=== PATIENT | female | born 1960 | race Caucasian/White ===

== ENCOUNTER → 2016-07-10 | Outpatient (CLI) | payer OTHER ==
--- NOTE | 2016-07-11 10:09 | MM ---
Reason for exam: screening (asymptomatic). Last mammogram was performed 1 year ago. History: Patient is postmenopausal. Physical Findings: A clinical breast exam by your physician is recommended on an annual basis and results should be correlated with mammographic findings. MG Screening Mammo w CAD Bilateral CC and MLO view(s) were taken. Prior study comparison: July 12, 2015, bilateral MG screening mammo w CAD. November 12, 2011, left diagnostic mammogram w/CAD. There are scattered fibroglandular densities. There is no discrete abnormality. ASSESSMENT: Negative, BI-RAD 1 RECOMMENDATION: Routine screening mammogram of both breasts in 1 year.
== END | disposition home or self-care (01) ==
LOC: RADMAMWWP 09:36
PROVIDERS: ATTEND Family Medicine
DX: Z12.31 Encounter for screening mammogram for malignant neoplasm of breast (principal)

== ENCOUNTER → 2016-07-10 | Outpatient (CLI) | payer OTHER ==
--- NOTE | 2016-07-10 14:16 | PN ---
A 56-year-old lady who has been [facility] for [facility] of obstructive sleep apnea-hypopnea syndrome. I discussed results of diagnostic sleep study and CPAP titration with patient and family in details. Patient recently had been started on treatment with CPAP at the pressure 16 cm of water. I checked CPAP unit. Usage is 25/30 nights for more than 4 hours, a leak from the mask up to 40 L/min which is borderline. Apnea-hypopnea index reading from the machine is only 0.9, which is perfect. Sometimes patient has difficulties related to the pressure, presently machine on the CPAP at 16 cm of water. During the first visit [place] Sleepiness Scale was 22. 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 She goes to bed from 8 to 11 p.m. Subsequently, if she goes to bed only at 11, it is only about 4-1/2 hours of sleep. MEDICATIONS: Aspirin, atorvastatin, vitamin D supplement, metoprolol, clopidogrel, lisinopril. PHYSICAL EXAMINATION: During physical exam, patient in no distress. BP 146/73, HR 88, RR 16, weight 261, temp 97.4. Oxygen saturation at room air 95%. Low position of soft palate. ABDOMEN: Obese. EXTREMITIES: 1+ edema. NECK: Supple. No JVD. Thyroid is not palpable. LUNGS: Clear to percussion and to auscultation. Good air exchange. No wheezing or rhonchi. HEART: S1, S2 regular. No murmurs, gallops or rubs. OIL WELL PUMPER: Awake, alert, and oriented x3. Cranial nerves 2 to 7 intact. There is no fasciculation or atrophy noted. No focal deficits observed. IMPRESSION: 1. Obstructive sleep apnea-hypopnea syndrome. Apnea-hypopnea index 14.8 with oxygen desaturation to 73.9%. Patient benefiting from treatment, demonstrated good compliance with treatment. 2. Obesity. 3. Hypertension. 4. Swelling of the legs. 5. Status post cholecystectomy. 6. Status post tonsillectomy. 7. Status post cyst removed from right ovary. PLAN: 1. I adjusted CPAP unit down to the pressure of 14 cm of water. 2. I change ramp from automatic regimen to regular regimen for 30 minutes started from the pressure of 6 cm of water. 3. Increase time in bed to at least 7-1/2 hours, patient should go to bed at 8 p.m. 4. We discussed that she needs increased time in bed because getting normal amount of sleep may help her to lose weight. 5. No driving if feeling any sleepiness. Thank you very much for allowing me to participate in the management of your patient. Sincerely, Ori Landeros MD, PhD, FAASM. Diplomat of [place] [employer], Sleep Medicine Board by [place] [employer] [place] [employer] [facility] [place]
== END | disposition home or self-care (01) ==
LOC: SLEEP 11:16
PROVIDERS: ATTEND Internal Medicine
DX: G47.33 Obstructive sleep apnea (adult) (pediatric) (principal); E66.9 Obesity, unspecified; I10 Essential (primary) hypertension; M79.89 Other specified soft tissue disorders; Z98.890 Other specified postprocedural states; Z79.899 Other long term (current) drug therapy

== ENCOUNTER → 2016-10-01 | Outpatient (CLI) | payer OTHER ==
--- NOTE | 2016-10-01 15:50 | US ---
EXAMINATION TYPE: US kidneys/renal and bladder DATE OF EXAM: 10/01/2016 3:34 PM COMPARISON: CT 2016 CLINICAL HISTORY: R10.84 Abdominal pain.R10.9 Right Flank pain. symptoms intermittent x 2 months EXAM MEASUREMENTS: Right Kidney: 10.1 x 6.4 x 5.3 cm Left Kidney: 11.0 x 6.0 x 5.2 cm Post Void Residual Volume: 2.1 mL Right Kidney: No hydronephrosis or masses seen Left Kidney: No hydronephrosis or masses seen Bladder: wnl, but not fully distended Bilateral Jets seen: Yes Normal Post Void Residual: Yes IMPRESSION: No hydronephrosis or nephrolithiasis.
== END | disposition home or self-care (01) ==
LOC: RADUSWWP 14:59
PROVIDERS: ATTEND Family Medicine
DX: R10.84 Generalized abdominal pain (principal); Z88.1 Allergy status to other antibiotic agents; Z88.7 Allergy status to serum and vaccine
CPT/HCPCS: 76770

== ENCOUNTER → 2016-10-15 | Outpatient (CLI) | payer OTHER ==
--- NOTE | 2016-10-15 08:01 | CT ---
EXAMINATION TYPE: CT abdomen w con DATE OF EXAM: 10/15/2016 7:51 AM REFERENCE: Previous study dated 08/22/2015 HISTORY: R10.11 RUQ abdominal pain HISTORY: RUQ abdominal pain and Right flank pain REFERENCE: NONE CT DLP: 1693.10 mGy Automated exposure control for dose reduction was used. TECHNIQUE: Helical acquisition through the abdomen and pelvis was obtained following the oral ingesti on of with Oral Contrast and following intravenous administration of 100 ml mL of Omnipaque 300. The data was reformatted in axial, coronal and sagittal projections. FINDINGS: Visualized portions of the lungs are clear. There is no pleural or pericardial fluid. The heart is mildly enlarged. Within the abdomen, the liver is prominent measuring 20 cm. This is largely due to a prominent Kraig 's lobe. The gallbladder has been removed. The spleen is unremarkable. There are stable partially calcified lesions in the left upper quadrant, unchanged from previous. The se may represent calcified lymph nodes. The pancreas is unremarkable. Both kidneys demonstrate function and appear morphologically normal. There is no evidence of nephroli thiasis or hydronephrosis. There is moderate atheromatous calcification of the aorta and iliac vessels. There is no significant retroperitoneal or proximal iliac adenopathy. There is uncomplicated diverticular change involving the left side of the colon. There is mucosal thi ckening involving the transverse colon. The appendix is normal. Small bowel loops are normal. No free fluid and no free air is seen. 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 No bony destructive lesion is seen. IMPRESSION: 1. MILD CARDIOMEGALY. 2. MILD PROMINENCE OF THE LIVER. 3. STABLE, PARTIALLY CALCIFIED LEFT UPPER QUADRANT LESIONS OF QUESTIONABLE ETIOLOGY AND SIGNIFICANCE. 4. UNCOMPLICATED DIVERTICULOSIS OF THE LEFT SIDE OF THE COLON. 5. MUCOSAL THICKENING INVOLVING THE TRANSVERSE COLON. PLEASE CORRELATE CLINICALLY FOR COLITIS. 6. FORESTIER'S DISEASE.
== END | disposition home or self-care (01) ==
LOC: RADCTMAIN 07:18
PROVIDERS: ATTEND Family Medicine
DX: K57.30 Diverticulosis of large intestine without perforation or abscess without bleeding (principal); M35.3 Polymyalgia rheumatica; K63.89 Other specified diseases of intestine; R19.8 Other specified symptoms and signs involving the digestive system and abdomen
CPT/HCPCS: 74160; Q9967

== ENCOUNTER → 2017-10-13 | Outpatient (CLI) | payer OTHER ==
[2017-10-13 15:32] LABS: HCT 40.9 % (34.0-46.0); HGB 13.6 gm/dL (11.4-16.0); MCH 29.9 pg (25.0-35.0); MCHC 33.3 g/dL (31.0-37.0); MCV 89.7 fL (80.0-100.0); Mean Platelet Volume 8.3; Platelet Count 147 k/uL (150-450); RBC 4.56 m/uL (3.80-5.40); RDW 14.3 % (11.5-15.5); WBC 7.7 k/uL (3.8-10.6)
[2017-10-13 15:50] LABS: Anion Gap 13 mmol/L; Blood Urea Nitrogen 10 mg/dL (7-17); Carbon Dioxide 28 mmol/L (22-30); Chloride 105 mmol/L (98-107); Sodium 146 mmol/L (137-145)
== END | disposition home or self-care (01) ==
LOC: LABPAT 15:13
PROVIDERS: ATTEND Internal Medicine Cardiovascular Disease
DX: Z01.812 Encounter for preprocedural laboratory examination (principal); I25.5 Ischemic cardiomyopathy
CPT/HCPCS: 36415; 80051; 82565; 84520; 85027

== ENCOUNTER 2017-11-05 06:00 | Day surgery (SDC) | payer OTHER ==
[2017-10-29 11:26] VITALS: BMI 46.8
[2017-11-05] MEDS ORDERED: CLINDAMYCIN 900 MG in DEXTROSE 5% IN WATER 50 ML IVPB ONE ×2 (06:08)
[2017-11-05] MEDS ORDERED: CLINDAMYCIN 600 MG in SODIUM CHLORIDE 0.9% IRRIGATIO 250 ML IRRIGATION ONE (06:08)
[2017-11-05 06:39] LABS: Basophils # (A) 0.1 k/uL (0-0.2); Basophils % (A) 1 %; Eosinophils # (A) 0.2 k/uL (0-0.7); Eosinophils % (A) 2 %; HCT 42.6 % (34.0-46.0); HGB 14.1 gm/dL (11.4-16.0); Lymphocytes # (A) 1.8 k/uL (1.0-4.8); Lymphocytes % (A) 22 %; MCH 29.4 pg (25.0-35.0); MCV 88.9 fL (80.0-100.0); Mean Platelet Volume 8.7; Monocytes # (A) 0.4 k/uL (0-1.0); Monocytes % (A) 5 %; Neutrophils # (A) 5.5 k/uL (1.3-7.7); Neutrophils % (A) 69 %; Platelet Count 142 k/uL (150-450); RBC 4.79 m/uL (3.80-5.40); RDW 14.2 % (11.5-15.5)
[2017-11-05] MEDS ORDERED: KETAMINE 10 MG/ML 20 ML VIAL ONE (07:35)
[2017-11-05] MEDS ORDERED: IV FLUID CONTINUATION 900 ML IV ONE (07:35)
[2017-11-05] MEDS ORDERED: MIDAZOLAM 2 MG/2 ML VIAL ONE (07:35)
[2017-11-05] MEDS ORDERED: fentaNYL (PF) 50 MCG/ML 2 ML AMP ONE (07:35)
[2017-11-05] MEDS ORDERED: PROPOFOL 10 MG/ML 20 ML VIAL IV ONE (07:35)
[2017-11-05] MEDS ORDERED: IOPAMIDOL-250 50ML BTL IV ONE (07:47)
[2017-11-05 07:52] LABS: Anion Gap 9 mmol/L; Blood Urea Nitrogen 11 mg/dL (7-17); Carbon Dioxide 25 mmol/L (22-30); Chloride 107 mmol/L (98-107); Glucose 116 mg/dL (74-99); Potassium 4.1 mmol/L (3.5-5.1); Sodium 141 mmol/L (137-145)
[2017-11-05] MEDS ORDERED: LIDOCAINE 1% INJ 10MG/ML (20 ML MDV) ONE ×3 (08:01→08:06)
[2017-11-05] MEDS ORDERED: LIDOCAINE 1% INJ 10MG/ML (20 ML MDV) SQ ONE ×2 (08:20→08:31)
[2017-11-05] MEDS ORDERED: ACETAMINOPHEN TAB 325 MG TAB PO PRN (09:25)
--- NOTE | 2017-11-05 09:38 | P.PCN ---
Date of Procedure: 11/05/17 Preoperative Diagnosis: Ischemic cardiomyopathy and CHF Postoperative Diagnosis: Ischemic cardiac myopathy and CHF Procedure(s) Performed: AICD implantation, single-chamber single coil. Axillary venography Description of Procedure: HISTORY: This is a 57-year-old female with history of extensive previous myocardial infarctions, ischemic cardiomyopathy and class II congestive heart failure and ejection fraction of 30%. Dr. Esquivel recommended that patient have AICD implantation. CONSENT:I have discussed the risks, benefits and alternative therapies for the above-mentioned procedure and for both sedation/analgesia as well as necessary blood product administration, if indicated, as they pertain to this patient. The patient has indicated understanding and acceptance of the risks and procedures discussed. PROCEDURE: Patient was brought to the lab in a fasting state. Patient was prepped and draped in the usual fashion. Department of anesthesia provided IV sedation. The skin below the left clavicle was infiltrated with lidocaine. An incision was made parallel to deltopectoral groove was deepened until the pectoral fascia was exposed. A pocket was created by blunt dissection and cautery. Axillary venography was performed to delineate the course of the axillary vein. A single stick was performed into extrathoracic portion of the axillary vein and a single sheath was advanced over the guidewires and left in subclavian vein. Conscious Sedation: As per anesthesia Fentanyl Duration LEADS: VENTRICULAR: This is manufactured by [employer]. The model number is [id number] and the serial number [id number]. The ventricular lead is maneuvered l with help of a straight and curved stylets into the left ventricle apical region. Satisfactory position was obtained and threshold measurements were made and thresholds were obtained. THRESHOLDS: VENTRICLE: The minimum patient threshold was 0.8 at pulse width of 0.5 and impedance of 6 and 46 ohms R-wave: 27.9 The leads and pulse generator remained in the pocket after it was washed with antibiotics. Pocket was closed in the usual fashion. The fascia was closed with 2-0 Prolene ,the subcutaneous tissue was closed with 3-0 Prolene and the skin was closed with 4-0 Prolene. PROGRAMMING: MICK PROGRAMMING: MODE : VVI RATE: 40 OUTPUT: Ventricle: 3.5 V Tachycardia Programming: VF zone: programmed to a rate of 188 bpm. The therapies are programmed to 25 J followed by 355. The last 2 shocks with reversed polarity. VT zone: Programmed to a rate of 167. The therapies are programmed to burst pacing followed by ramp pacing followed by cardioversion with 25 J followed by 353. Monitor zone is programmed to an interval of 450 ms. FINAL IMPRESSION: #1. Axillary venography #2. Insertion of single-chamber AICD , single coil #3. DFT testing COMPLICATIONS: None PLAN: Patient will monitored on the telemetry unit. Prophylactic antibacterial be continued. Chest x-ray in the morning. If the patient is stable, she'll be discharged home tomorrow.
[2017-11-05] MEDS ORDERED: NITROGLYCERIN SL TABS 0.4 MG TAB SUBLINGUAL PRN (11:47)
[2017-11-05] MEDS ORDERED: SYMBICORT 160-4.5 MCG INHALER INHALATION PRN (11:47)
[2017-11-05] MEDS: SODIUM CHLORIDE 0.9% 1,000 ML IV SCH ×2 (11:52→11:53)
[2017-11-05] MEDS: CLINDAMYCIN 900 MG in DEXTROSE 5% IN WATER 50 ML IVPB SCH ×4 (14:47→22:16)
[2017-11-05] MEDS: HYDROcodone/APAP 5-325MG 1 EACH TAB PO PRN ×2 (16:38→22:18)
[2017-11-05] MEDS ORDERED: ATORVASTATIN 40 MG TAB PO SCH (21:00)
[2017-11-06] MEDS: CLINDAMYCIN 900 MG in DEXTROSE 5% IN WATER 50 ML IVPB SCH ×4 (03:00→08:12)
[2017-11-06] MEDS: SODIUM CHLORIDE 0.9% 1,000 ML IV SCH ×2 (05:33)
[2017-11-06 07:36] VITALS: BP 153/102; PULSE 98; RESP 16; TEMP 98.6
[2017-11-06] MEDS ORDERED: LISINOPRIL 20 MG TAB PO SCH (09:00)
[2017-11-06] MEDS ORDERED: METOPROLOL TARTRATE 50 MG TAB PO SCH (09:00)
--- NOTE | 2017-11-06 09:12 | P.DS ---
Providers Date of admission: 12/05/2017 Attending physician: Adair Donaldson Primary care physician: Fredi Dejesus - Discharge Diagnosis(es) (1) Ischemic cardiomyopathy Current Visit: Yes Status: Acute (2) Chronic systolic (congestive) heart failure Current Visit: Yes Status: Acute (3) Cardiac defibrillator in place Current Visit: Yes Status: Acute Hospital Course: This 57-year-old female with history of previous myocardial infarctions and ischemic cardiac myopathy was recently evaluated by Dr. Esquivel and was found to have an ejection fraction of 30%, which has been persistent. She also has symptoms of class II CHF. Patient is advised to have prophylactic AICD implantation. She was brought in yesterday and the procedure was done with help of some anesthesia by the department of anesthesia. Patient tolerated the procedure well. Patient has remained stable overnight. Complaints of mild soreness in the area. Patient also has chronic COPD and mild shortness of breath and mild wheezing. Otherwise patient is feeling good. No arrhythmias are detected. Chest x-ray showed proper lead position. The device is interrogated which showed stable findings. Patient is being discharged home with the usual instructions. Patient is advised to keep the dressing dry until seen in the office in one week. She is advised to report if she develops any undue swelling, pain, fever, chills. She is advised not to do any heavy lifting , pushing, pulling or driving using left arm. She is advised not to lift the arm above the shoulder level. Follow-up in the office in one week Dr. Esquivel and also in the device clinic Plan - Discharge Summary Discharge Rx Participant: Yes New Discharge Prescriptions: New Clindamycin [Cleocin] 450 mg PO Q6H #10 capsule No Action Aspirin EC [Ecotrin] 325 mg PO DAILY Nitroglycerin Sl Tabs [Nitrostat] 0.4 mg SUBLINGUAL Q5M PRN #30 tab PRN Reason: Chest Pain Clopidogrel [Plavix] 75 mg PO DAILY #30 tab Lisinopril [Prinivil] 20 mg PO DAILY #30 tablet Atorvastatin Calcium [Lipitor] 40 mg PO HS #30 tab Budesonide-Formot 160-4.5 Mcg [Symbicort 160-4.5 Mcg Inhaler] 1 puff PO BID PRN PRN Reason: Shortness Of Breath Or Wheezing Metoprolol Tartrate [Lopressor] 50 mg PO DAILY Ibuprofen [Motrin] 800 mg PO Q6H PRN PRN Reason: Pain Discharge Medication List Aspirin EC [Ecotrin] 325 mg PO DAILY 04/26/14 [History] Atorvastatin Calcium [Lipitor] 40 mg PO HS #30 tab 03/29/15 [Rx] Clopidogrel [Plavix] 75 mg PO DAILY #30 tab 03/29/15 [Rx] Lisinopril [Prinivil] 20 mg PO DAILY #30 tablet 03/29/15 [Rx] Nitroglycerin Sl Tabs [Nitrostat] 0.4 mg SUBLINGUAL Q5M PRN #30 tab 03/29/15 [Rx ] Budesonide-Formot 160-4.5 Mcg [Symbicort 160-4.5 Mcg Inhaler] 1 puff PO BID PRN 04/08/16 [History] Ibuprofen [Motrin] 800 mg PO Q6H PRN 10/14/17 [History] Metoprolol Tartrate [Lopressor] 50 mg PO DAILY 10/14/17 [History] Clindamycin [Cleocin] 450 mg PO Q6H #10 capsule 11/06/17 [Rx] Follow up Appointment(s)/Referral(s): Adair Donaldson MD [STAFF PHYSICIAN] - 1 Week Tramaine Esquivel MD [STAFF PHYSICIAN] - 1 Week Discharge Disposition: HOME SELF-CARE
--- NOTE | 2017-11-06 09:47 | XR ---
EXAMINATION TYPE: XR chest 2V DATE OF EXAM: 11/06/2017 COMPARISON: Prior chest x-ray 04/08/2016 HISTORY: Lead placement check TECHNIQUE: Frontal and lateral views of the chest are obtained. FINDINGS: There is been interval placement of a defibrillator with the generator in the left pectora l region, lead is in the right ventricle. Patient is post median sternotomy. There is no evident pneu mothorax or pleural effusion. Heart size is stable. There are overlying cardiac leads. IMPRESSION: No evident complication status post defibrillator placement
--- NOTE | 2017-11-06 13:46 | PN ---
PROGRESS NOTE CHIEF COMPLAINT: Ischemic cardiomyopathy. HISTORY OF PRESENT ILLNESS: This lady is doing well. The AICD was placed yesterday and she is not having a great deal of difficulty or pain. She will go home today. PHYSICAL EXAM: Cardiac exam is normal. Chest is clear. Vital signs are normal. IMPRESSION: Status post implantation of AICD. PLAN: Probably home today. MMODL / IJN: [id number] /
--- NOTE | 2017-11-06 13:52 | CONS ---
CONSULTATION CHIEF COMPLAINT: Ischemic cardiomyopathy. HISTORY OF PRESENT ILLNESS: This lady has been brought in by Cardiology for an elective implantation of an AICD. She has been doing well. She has not had any chest pain, palpitations, syncope, shortness of breath, etc. REVIEW OF SYSTEMS: She has no other complaints or problems. Past medical history, family history and personal and social histories can all be found in detail in her admitting summary. PHYSICAL EXAMINATION: Blood pressure is 129/78 with a pulse of 83, respirations of 22, and she is afebrile. In general, she appeared to be well developed, well nourished, in no acute distress. Skin color was normal. Skin was warm and dry. Lymph nodes are not enlarged. Head, ears, eyes, nose, mouth, and throat were normal. Neck veins are not distended. Thyroid is not enlarged. Chest is clear. Cardiac exam is normal. Normal sinus rhythm and no murmurs or extra sounds. The abdomen is soft and nontender, protuberant. EXTREMITIES: Normal. Neurologically, she is intact. IMPRESSION: 1. Ischemic cardiomyopathy. 2. Obesity. RECOMMENDATIONS: None. MMODL / IJN: [id number] /
== END 2017-11-06 12:03 | disposition home or self-care (01) ==
LOC: CATHEP 06:00 → 3OBS 09:13 → CATHEP 11-06 12:03
PROVIDERS: ATTEND Internal Medicine Cardiovascular Disease
DX: Z00.6 Encounter for examination for normal comparison and control in clinical research program (principal); I25.5 Ischemic cardiomyopathy; I11.0 Hypertensive heart disease with heart failure; I50.22 Chronic systolic (congestive) heart failure; I25.810 Atherosclerosis of coronary artery bypass graft(s) without angina pectoris; E66.9 Obesity, unspecified; Z68.42 Body mass index [BMI] 45.0-49.9, adult; R94.39 Abnormal result of other cardiovascular function study; E78.5 Hyperlipidemia, unspecified; I73.9 Peripheral vascular disease, unspecified; J44.9 Chronic obstructive pulmonary disease, unspecified; G47.33 Obstructive sleep apnea (adult) (pediatric); M19.90 Unspecified osteoarthritis, unspecified site; I25.2 Old myocardial infarction; F17.210 Nicotine dependence, cigarettes, uncomplicated; Z99.89 Dependence on other enabling machines and devices; Z95.1 Presence of aortocoronary bypass graft; Z79.02 Long term (current) use of antithrombotics/antiplatelets; Z79.82 Long term (current) use of aspirin; Z79.51 Long term (current) use of inhaled steroids; Z79.899 Other long term (current) drug therapy; Z88.1 Allergy status to other antibiotic agents
CPT/HCPCS: 93641; 33249; 80048; 85025; 71046; C1769 ×2; C1892 ×2; C1895; C1722; J2250; J2001; J3010; J2704; Q9966

== ENCOUNTER → 2018-02-02 | Outpatient (CLI) | payer OTHER ==
[2018-02-02 16:27] LABS: Anion Gap 5 mmol/L; Blood Urea Nitrogen 14 mg/dL (7-17); Calcium 9.6 mg/dL (8.4-10.2); Carbon Dioxide 31 mmol/L (22-30); Chloride 105 mmol/L (98-107); Glucose 151 mg/dL (74-99); Potassium 5.1 mmol/L (3.5-5.1); Sodium 141 mmol/L (137-145)
== END | disposition home or self-care (01) ==
LOC: LABWHC1 15:41
PROVIDERS: ATTEND Nurse Practitioner Adult Health
DX: I50.23 Acute on chronic systolic (congestive) heart failure (principal)
CPT/HCPCS: 36415; 80048; 83880

== ENCOUNTER → 2018-05-10 | Outpatient (CLI) | payer OTHER ==
[2018-05-10 16:16] VITALS: BP 114/75; PULSE 82; TEMP 98.1; BMI 50.4
[2018-05-10 17:34] LABS: HGB 12.8 gm/dL (11.4-16.0); MCH 29.6 pg (25.0-35.0); MCHC 32.1 g/dL (31.0-37.0); Mean Platelet Volume 9.5; Platelet Count 162 k/uL (150-450); RBC 4.34 m/uL (3.80-5.40); RDW 15.1 % (11.5-15.5); WBC 8.9 k/uL (3.8-10.6)
[2018-05-11 03:13] LABS: Vitamin D 25 Hydroxy 21.2 ng/mL (30.0-100.0)
[2018-05-11 03:20] LABS: Albumin 4.3 g/dL (3.80-4.90); Albumin/Globulin Ratio 1.95 (1.20-2.10); Anion Gap 6.5 mmol/L (4.00-12.00); Calcium 9.5 mg/dL (8.7-10.3); Carbon Dioxide 26.5 mmol/L (21.6-31.8); Globulin 2.2 g/dL (2.1-3.7); Total Bilirubin 0.3 mg/dL (0.3-1.2); Total Protein 6.5 g/dL (6.2-8.2)
[2018-05-11 04:08] LABS: Hemoglobin A1C 5.7 % (4.0-6.0)
--- NOTE | 2018-05-14 14:34 | P.HPBAR ---
Bariatric H&P - History & Physicial H&P Date: 05/10/18 History & Physicial: Visit/CC: initial clinic visit Patient initial contact: Initial weight: Initial weight in pounds: Height: 5 ft 4 in Initial BMI: Last weight: Current weight: 133.356 kg Current weight in pounds: 294.00 Current BMI: 50.4 [place] body weight (based on NIH guidelines): 54.431 kg Excess body weight loss: The patient is a 58 year-old F who presents for Bariatric Assessment. The patient presents today for new patient consultation for morbid obesity. Patient has had lifetime problems obesity. He is interested in the gastric sleeve. Past Medical History Past Medical History: Coronary Artery Disease (CAD), Chest Pain / Angina, COPD, Hyperlipidemia, Hypertension, Myocardial Infarction (NC), Osteoarthritis (OA), Sleep Apnea/CPAP/BIPAP, Vascular Disorder Additional Past Medical History / Comment(s): PVD, neuropathy L leg, carpal tunnel syndrome bilateral wrists, numbness/tingling bilateral hands, goiter, supposed to use CPAP, see Dr. Donaldson H & P Last Myocardial Infarction Date:: 2006 History of Any Multi-Drug Resistant Organisms: None Reported Past Surgical History: Section, Cholecystectomy, Coronary Bypass/CABG, Heart Catheterization With Stent, Pacemaker Additional Past Surgical History / Comment(s): triple bypass 2006. Pt has a "Visia AF MRI VR Surescan Defibrillator" implanted 11/05/17. Serial # [id number] , Model #[id number] Serial # [id number], Model # [id number] Past Anesthesia/Blood Transfusion Reactions: Family History of Problems w/ Anesthesia Additional Past Anesthesia/Blood Transfusion Reaction / Comm: sister had some kind of "allergic reaction" to anesthesia Date of Last Stent Placement:: 03/2015 Type of Cardiac Device: Permanent Pacemaker Device Placement Date:: 11/05/17 Smoking Status: Current every day smoker - Past Family History Father Family Medical History: Coronary Artery Disease (CAD), Diabetes Mellitus, Myocardial Infarction (NC) Additional Family Medical History / Comment(s): Father at age 50 of massive NC. Father was an alcoholic. He was bipolar Mother Additional Family Medical History / Comment(s): Mother has scoliosis. She is 83 yrs old. Sister(s) Family Medical History: Congestive Heart Failure (CHF), Diabetes Mellitus Surgical - Exam Vital Signs Temp Pulse BP 98.1 F 82 114/75 05/10/18 16:11 05/10/18 16:11 05/10/18 16:11 - General well developed, no distress - Eyes PERRL - ENT normal pinna - Neck no masses - Respiratory normal expansion - Cardiovascular Rhythm: regular - Abdomen Abdomen: soft, non tender Results - Labs 05/10/18 17:00 05/10/18 17:00 Bariatric Assessment & Plan Plan: Morbid obesity with BMI 51. Patient was well detailed on the procedure sleeve gastrectomy. He understands the risks and benefits of procedure including conversion to the open procedure and injury to the stomach liver or spleen. The patient will be scheduled for an EGD. Bariatric Checklist Checklist: Plan: Checklist: EGD: 1. Hiatal hernia: 2. H. Pylori: HgbA1c: Vitamin D: Smoking: Current every day smoker Primary care physician referral: dr cotter Psychiatry clearance: Cardiology clearance: Sleep study: Diet journal: VTE risk score: VTE risk level: Rehab needs at discharge:
== END | disposition home or self-care (01) ==
LOC: BARWHC3 15:02
PROVIDERS: ATTEND Surgery
DX: E66.01 Morbid (severe) obesity due to excess calories (principal); Z68.43 Body mass index [BMI] 50.0-59.9, adult; Z90.49 Acquired absence of other specified parts of digestive tract
CPT/HCPCS: 80061; 80053; 82607; 85027; 82306; 83036; 93005; G0463; 99211

== ENCOUNTER 2018-05-31 23:01 | Emergency (ER) | payer OTHER ==
[2018-05-31 23:14] VITALS: RESP 20
[2018-06-01 00:14] LABS: Basophils # (A) 0.1 k/uL (0-0.2); Basophils % (A) 1 %; Eosinophils # (A) 0.1 k/uL (0-0.7); Eosinophils % (A) 2 %; HCT 39.2 % (34.0-46.0); HGB 12.3 gm/dL (11.4-16.0); Lymphocytes # (A) 1.3 k/uL (1.0-4.8); Lymphocytes % (A) 15 %; MCH 28.4 pg (25.0-35.0); MCHC 31.5 g/dL (31.0-37.0); MCV 90.3 fL (80.0-100.0); Mean Platelet Volume 7.9; Monocytes # (A) 0.4 k/uL (0-1.0); Monocytes % (A) 5 %; Neutrophils # (A) 6.8 k/uL (1.3-7.7); Neutrophils % (A) 76 %; Platelet Count 166 k/uL (150-450); RBC 4.34 m/uL (3.80-5.40); RDW 14.9 % (11.5-15.5)
[2018-06-01 00:21] LABS: INR 0.9 (<1.2); Partial Thromboplastin Time 23.9 sec (22.0-30.0); Prothrombin Time 9.8 sec (9.0-12.0)
--- NOTE | 2018-06-01 00:21 | XR ---
EXAMINATION TYPE: XR chest 2V DATE OF EXAM: 06/01/2018 COMPARISON: 11/06/2017 HISTORY: Difficulty breathing TECHNIQUE: Frontal and lateral views of the chest are obtained. FINDINGS: There is no heart failure nor confluent pneumonic infiltrate. Costophrenic angles are thad r. There is sternal wires. There is left axillary pacemaker noted with the lead tip over the right ve ntricle. Bony thorax is intact. There is small linear density over the right lower lung field. IMPRESSION: Minimal atelectasis right lower lung field.. No heart failure.
[2018-06-01 00:23] LABS: ALT 31 U/L (9-52); AST 22 U/L (14-36); Albumin 3.8 g/dL (3.5-5.0); Alkaline Phosphatase 92 U/L (38-126); Anion Gap 8 mmol/L; Blood Urea Nitrogen 12 mg/dL (7-17); Calcium 9.3 mg/dL (8.4-10.2); Carbon Dioxide 26 mmol/L (22-30); Chloride 105 mmol/L (98-107); Glucose 131 mg/dL (74-99); Potassium 4.3 mmol/L (3.5-5.1); Sodium 139 mmol/L (137-145); Total Bilirubin 0.4 mg/dL (0.2-1.3); Total Protein 6.7 g/dL (6.3-8.2)
[2018-06-01 00:32] LABS: Creatine Kinase 183 U/L (30-135)
[2018-06-01 00:45] LABS: Creatine Kinase MB 1.2 ng/mL (0.0-2.4); Troponin I <0.012 ng/mL (0.000-0.034)
--- NOTE | 2018-06-01 01:34 | ED ---
SOB HPI - General Chief Complaint: Shortness of Breath Stated Complaint: URI, chest congestion/pressure Time Seen by Provider: 06/01/18 01:16 Source: patient Mode of arrival: ambulatory Limitations: no limitations - History of Present Illness Initial Comments: Zack is a 58-year-old female with a history of COPD who presents the emergency department today for persistent cough. Patient reports that she had some children visiting her house, they were suffering from URI symptoms. Since that time her and her have been suffering from URI symptoms. Patient reports despite using her inhaler she has persistent cough and shortness of breath, she feels like her chest is tight and she is wheezing. - Related Data Home Medications Medication Instructions Recorded Confirmed Aspirin EC [Ecotrin] 325 mg PO DAILY 04/26/14 05/10/18 Budesonide-Formot 160-4.5 Mcg 1 puff PO BID PRN 04/08/16 05/10/18 [Symbicort 160-4.5 Mcg Inhaler] Ibuprofen [Motrin] 800 mg PO Q6H PRN 10/14/17 05/10/18 Metoprolol Tartrate [Lopressor] 50 mg PO DAILY 10/14/17 05/10/18 Ergocalciferol (Vitamin D2) 5,000 unit PO WEEKLY 05/10/18 05/10/18 [Vitamin D2] Furosemide [Lasix] 80 mg PO DAILY 05/10/18 05/10/18 Spironolactone 50 mg PO DAILY 05/10/18 05/10/18 Previous Rx's Medication Instructions Recorded Atorvastatin Calcium [Lipitor] 40 mg PO HS #30 tab 03/29/15 Clopidogrel [Plavix] 75 mg PO DAILY #30 tab 03/29/15 Lisinopril [Prinivil] 20 mg PO DAILY #30 tablet 03/29/15 Nitroglycerin Sl Tabs [Nitrostat] 0.4 mg SUBLINGUAL Q5M PRN #30 tab 03/29/15 Ipratropium-Albuterol Nebulize 3 ml INHALATION Q4-6H #60 neb 06/01/18 [Duoneb 0.5 mg-3 mg/3 ml Soln] predniSONE [Deltasone] 40 mg PO DAILY 5 Days #10 tablet 06/01/18 Allergies Allergy/AdvReac Type Severity Reaction Status Date / Time cephalexin monohydrate Allergy Nausea & Verified 05/31/18 23:14 [From Keflex] Vomiting & Diarrhea Review of Systems ROS Statement: Those systems with pertinent positive or pertinent negative responses have been documented in the HPI. ROS Other: All systems not noted in ROS Statement are negative. Past Medical History Past Medical History: Coronary Artery Disease (CAD), Chest Pain / Angina, COPD, Hyperlipidemia, Hypertension, Myocardial Infarction ([place]), Osteoarthritis (OA), Sleep Apnea/CPAP/BIPAP, Vascular Disorder Additional Past Medical History / Comment(s): PVD, neuropathy L leg, carpal tunnel syndrome bilateral wrists, numbness/tingling bilateral hands, goiter, supposed to use CPAP, see Dr. Donaldson H & P Last Myocardial Infarction Date:: 2006 History of Any Multi-Drug Resistant Organisms: None Reported Past Surgical History: Section, Cholecystectomy, Coronary Bypass/CABG, Heart Catheterization With Stent, Pacemaker Additional Past Surgical History / Comment(s): triple bypass 2006. Pt has a "Visia AF MRI VR Surescan Defibrillator" implanted 11/05/17. Serial # [id number] , Model #[id number] Serial # [id number], Model # [id number] Past Anesthesia/Blood Transfusion Reactions: Family History of Problems w/ Anesthesia Additional Past Anesthesia/Blood Transfusion Reaction / Comment(s): sister had some kind of "allergic reaction" to anesthesia Date of Last Stent Placement:: 03/2015 Type of Cardiac Device: Permanent Pacemaker Device Placement Date:: 11/05/17 Past Psychological History: No Psychological Hx Reported Smoking Status: Current every day smoker Past Alcohol Use History: None Reported Past Drug Use History: None Reported - Past Family History Father Family Medical History: Coronary Artery Disease (CAD), Diabetes Mellitus, Myocardial Infarction ([place]) Additional Family Medical History / Comment(s): Father at age 50 of massive [place]. Father was an alcoholic. He was bipolar Mother Additional Family Medical History / Comment(s): Mother has scoliosis. She is 83 yrs old. Sister(s) Family Medical History: Congestive Heart Failure (CHF), Diabetes Mellitus General Exam - General Exam Comments Initial Comments: GENERAL: Chronically ill appearing - appears older than stated age Smells of cigarette smoke HENT: Normocephalic, Atraumatic. Neck is soft and supple. No significant lymphadenopathy is noted. Oropharynx is clear. Moist mucous membranes. Neck has full range of motion without eliciting any pain. EYES: The sclera were anicteric and conjunctiva were pink and moist. Extraocular movements were intact and pupils were equal round and reactive to light. Eyelids were unremarkable. PULMONARY: Mild expiratory wheeze CARDIOVASCULAR: There is a regular rate and rhythm without any murmurs gallops or rubs. ABDOMEN: Obese, Soft and nontender with normal bowel sounds. SKIN: Skin is clear with no lesions or rashes and otherwise unremarkable. NEUROLOGIC: Patient is alert and oriented x3. Cranial nerves II through XII are grossly intact. Motor and sensory are also intact. Normal speech, volume and content. Symmetrical smile. MUSCULOSKELETAL: Normal extremities with adequate strength and full range of motion. No lower extremity swelling or edema. No calf tenderness. LYMPHATICS: No significant lymphadenopathy is noted PSYCHIATRIC: Normal psychiatric evaluation. Limitations: no limitations Limitations: no limitations Course Vital Signs 05/31/18 06/01/18 06/01/18 23:11 02:24 02:34 Temperature 98.8 F Pulse Rate 89 85 90 Respiratory 20 Rate Blood Pressure 132/84 O2 Sat by Pulse 96 Oximetry 06/01/18 03:44 Temperature 98.4 F Pulse Rate 97 Respiratory 20 Rate Blood Pressure 156/84 O2 Sat by Pulse 95 Oximetry Medical Decision Making - Medical Decision Making Patient was seen and evaluated history was obtained from patient and at bedside Patient with a history of COPD, still every day cigarette smoker, exposed to multiple children with upper respiratory infections now presenting with upper respiratory infection and aside no fevers or chills no chest pain Labs and imaging were ordered Chest x-ray with no pneumonia Influenza negative Labs unremarkable Patient was reevaluated after DuoNeb she reports feeling better. Patient received IM Solu-Medrol. Patient is out of her nebulizer solution at home is comfortable with plan for discharge home with prescription for nebulizer solution. Patient was discharged home with prescriptions for prednisone and DuoNeb's. All questions pertaining to care were answered return parameters were discussed patient was discharged home in stable condition. - Lab Data Result diagrams: 05/31/18 23:50 05/31/18 23:50 Lab Results 05/31/18 05/31/18 05/31/18 Range/Units 23:50 23:50 23:50 WBC 9.0 (3.8-10.6) k/uL RBC 4.34 (3.80-5.40) m/uL Hgb 12.3 (11.4-16.0) gm/dL Hct 39.2 (34.0-46.0) % MCV 90.3 (80.0-100.0) fL MCH 28.4 (25.0-35.0) pg MCHC 31.5 (31.0-37.0) g/dL RDW 14.9 (11.5-15.5) % Plt Count 166 (150-450) k/uL Neutrophils % 76 % Lymphocytes % 15 % Monocytes % 5 % Eosinophils % 2 % Basophils % 1 % Neutrophils # 6.8 (1.3-7.7) k/uL Lymphocytes # 1.3 (1.0-4.8) k/uL Monocytes # 0.4 (0-1.0) k/uL Eosinophils # 0.1 (0-0.7) k/uL Basophils # 0.1 (0-0.2) k/uL PT (9.0-12.0) sec INR (<1.2) APTT (22.0-30.0) sec Sodium 139 (137-145) mmol/L Potassium 4.3 (3.5-5.1) mmol/L Chloride 105 (98-107) mmol/L Carbon Dioxide 26 (22-30) mmol/L Anion Gap 8 mmol/L BUN 12 (7-17) mg/dL Creatinine 0.74 (0.52-1.04) mg/dL Est GFR (CKD-EPI)AfAm >90 (>60 ml/min/1.73 sqM) Est GFR (CKD-EPI)NonAf >90 (>60 ml/min/1.73 sqM) Glucose 131 H (74-99) mg/dL Calcium 9.3 (8.4-10.2) mg/dL Total Bilirubin 0.4 (0.2-1.3) mg/dL AST 22 (14-36) U/L ALT 31 (9-52) U/L Alkaline Phosphatase 92 (38-126) U/L Total Creatine Kinase 183 H (30-135) U/L CK-MB (CK-2) 1.2 (0.0-2.4) ng/mL CK-MB (CK-2) Rel Index 0.7 Troponin I <0.012 (0.000-0.034) ng/mL Total Protein 6.7 (6.3-8.2) g/dL Albumin 3.8 (3.5-5.0) g/dL Influenza Type A RNA (Not Detectd) Influenza Type B (PCR) (Not Detectd) 05/31/18 06/01/18 Range/Units 23:50 02:14 WBC (3.8-10.6) k/uL RBC (3.80-5.40) m/uL Hgb (11.4-16.0) gm/dL Hct (34.0-46.0) % MCV (80.0-100.0) fL MCH (25.0-35.0) pg MCHC (31.0-37.0) g/dL RDW (11.5-15.5) % Plt Count (150-450) k/uL Neutrophils % % Lymphocytes % % Monocytes % % Eosinophils % % Basophils % % Neutrophils # (1.3-7.7) k/uL Lymphocytes # (1.0-4.8) k/uL Monocytes # (0-1.0) k/uL Eosinophils # (0-0.7) k/uL Basophils # (0-0.2) k/uL PT 9.8 (9.0-12.0) sec INR 0.9 (<1.2) APTT 23.9 (22.0-30.0) sec Sodium (137-145) mmol/L Potassium (3.5-5.1) mmol/L Chloride (98-107) mmol/L Carbon Dioxide (22-30) mmol/L Anion Gap mmol/L BUN (7-17) mg/dL Creatinine (0.52-1.04) mg/dL Est GFR (CKD-EPI)AfAm (>60 ml/min/1.73 sqM) Est GFR (CKD-EPI)NonAf (>60 ml/min/1.73 sqM) Glucose (74-99) mg/dL Calcium (8.4-10.2) mg/dL Total Bilirubin (0.2-1.3) mg/dL AST (14-36) U/L ALT (9-52) U/L Alkaline Phosphatase (38-126) U/L Total Creatine Kinase (30-135) U/L CK-MB (CK-2) (0.0-2.4) ng/mL CK-MB (CK-2) Rel Index Troponin I (0.000-0.034) ng/mL Total Protein (6.3-8.2) g/dL Albumin (3.5-5.0) g/dL Influenza Type A RNA Not Detected (Not Detectd) Influenza Type B (PCR) Not Detected (Not Detectd) - EKG Data -: EKG Interpreted by Me EKG Comments: EKG obtained at 11:40 PM, rate is 87 rhythm is sinus is normal axis, normal intervals, MN 156, QRS 82, QTc is 425 there is no acute ST elevations or depressions or evidence of acute ischemia or infarction. Disposition Clinical Impression: COPD (chronic obstructive pulmonary disease), Upper respiratory infection Disposition: HOME SELF-CARE Condition: Good Instructions: Upper Respiratory Infection (ED), COPD (Chronic Obstructive Pulmonary Disease) (ED) Prescriptions: Ipratropium-Albuterol Nebulize [Duoneb 0.5 mg-3 mg/3 ml Soln] 3 ml INHALATION Q4 -6H #60 neb predniSONE [Deltasone] 40 mg PO DAILY 5 Days #10 tablet Is patient prescribed a controlled substance at d/c from ED?: No Referrals: Fredi Dejesus MD [Primary Care Provider] - 1-2 days Time of Disposition: 03:14
[2018-06-01] MEDS ORDERED: methylPREDNISolone SOD SUCCI 125 MG/2 ML VIAL IV STA (02:02)
[2018-06-01] MEDS ORDERED: IPRATROPIUM-ALBUTEROL 3 ML NEB INHALATION STA (02:02)
[2018-06-01] MEDS ORDERED: methylPREDNISolone SOD SUCCI 125 MG/2 ML VIAL IM ONE (03:07)
[2018-06-01 03:45] VITALS: BP 156/84; PULSE 97; TEMP 98.4
== END 2018-06-01 03:45 | disposition home or self-care (01) ==
LOC: EC 23:01
DX: J44.9 Chronic obstructive pulmonary disease, unspecified (principal); J06.9 Acute upper respiratory infection, unspecified; I25.10 Atherosclerotic heart disease of native coronary artery without angina pectoris; I10 Essential (primary) hypertension; I25.2 Old myocardial infarction; M19.90 Unspecified osteoarthritis, unspecified site; G47.30 Sleep apnea, unspecified; I73.9 Peripheral vascular disease, unspecified; G62.9 Polyneuropathy, unspecified; F17.210 Nicotine dependence, cigarettes, uncomplicated; Z99.89 Dependence on other enabling machines and devices; Z90.49 Acquired absence of other specified parts of digestive tract; Z95.1 Presence of aortocoronary bypass graft; Z95.5 Presence of coronary angioplasty implant and graft; Z95.810 Presence of automatic (implantable) cardiac defibrillator; Z98.890 Other specified postprocedural states; Z79.82 Long term (current) use of aspirin; Z79.899 Other long term (current) drug therapy; Z88.1 Allergy status to other antibiotic agents
CPT/HCPCS: 36415; 94640; 93005; 80053; 82550; 82553; 84484; 85025; 85610; 85730; 87502; 71046; 99285; 96372; J2930

== ENCOUNTER 2018-10-29 20:09 | Emergency (ER) | payer OTHER ==
[2018-10-29] MEDS ORDERED: IPRATROPIUM 0.5 MG/2.5 ML NEBU INHALATION STA (22:12)
[2018-10-29] MEDS ORDERED: DEXAMETHASONE SOD PHOSPHATE 10 MG/ML 1 ML VIAL IV STA (22:12)
[2018-10-29] MEDS ORDERED: ALBUTEROL NEBULIZED 2.5 MG/3 ML INHALATION STA (22:12)
--- NOTE | 2018-10-29 23:04 | XR ---
EXAM: XR Chest, 2 Views CLINICAL HISTORY: ITS.REASON XR Reason: difficulty breathing TECHNIQUE: Frontal and lateral views of the chest. COMPARISON: CTA chest 08/11/2018. Chest radiographs 06/01/2018. FINDINGS: Lungs: Unremarkable. No consolidation. Pleural space: Unremarkable. No pneumothorax. Heart: Unremarkable. No cardiomegaly. Mediastinum: Unremarkable. Bones/joints: Sternal cerclage wires. Degenerative change in the acromioclavicular joints and the thoracic spine. Tubes, lines and devices: Cardiac pacing device appears unchanged. IMPRESSION: No acute cardiopulmonary abnormality.
--- NOTE | 2018-10-29 23:06 | ED ---
General Adult HPI - General Chief complaint: Shortness of Breath Stated complaint: SOB Time Seen by Provider: 10/29/18 22:00 Source: patient, RN notes reviewed, old records reviewed Mode of arrival: EMS Limitations: no limitations - History of Present Illness Initial comments: 58-year-old female history of COPD remote history of tobacco abuse presenting with cough. Cough is productive of white sputum. She does have mild dyspnea. She also complains of sore throat. Denies fever or chills. Denies chest pain. Denies abdominal pain. Denies lower extremity pain or swelling. She states symptoms have been present today. Her sore throat has worsened her cough. - Related Data Home Medications Medication Instructions Recorded Confirmed Aspirin EC [Ecotrin] 325 mg PO DAILY 04/26/14 10/29/18 Budesonide-Formot 160-4.5 Mcg 1 puff PO RT-BID PRN 04/08/16 10/29/18 [Symbicort 160-4.5 Mcg Inhaler] Ibuprofen [Motrin] 800 mg PO Q6H PRN 10/14/17 10/29/18 Metoprolol Tartrate [Lopressor] 50 mg PO DAILY 10/14/17 10/29/18 Ergocalciferol (Vitamin D2) 50,000 unit PO DIRECTED 05/10/18 10/29/18 [Vitamin D2] Furosemide [Lasix] 80 mg PO DAILY 05/10/18 10/29/18 Spironolactone 50 mg PO DAILY 05/10/18 10/29/18 Ipratropium-Albuterol Nebulize 3 ml INHALATION RT-Q4H PRN 08/10/18 10/29/18 [Duoneb 0.5 mg-3 mg/3 ml Soln] Previous Rx's Medication Instructions Recorded Atorvastatin Calcium [Lipitor] 40 mg PO HS #30 tab 03/29/15 Clopidogrel [Plavix] 75 mg PO DAILY #30 tab 03/29/15 Lisinopril [Prinivil] 20 mg PO DAILY #30 tablet 03/29/15 Azithromycin [Zithromax Z-pack] 0 mg PO DIRECTED #6 tab 10/29/18 methylPREDNISolone Dose Pack 4 mg PO DIRECTED #21 package 10/29/18 [Medrol Dose Pack] Allergies Allergy/AdvReac Type Severity Reaction Status Date / Time cephalexin monohydrate AdvReac Nausea & Verified 10/29/18 20:37 [From Keflex] Vomiting & Diarrhea prednisone AdvReac Nausea & Verified 10/29/18 20:37 Vomiting & Diarrhea Review of Systems ROS Statement: Those systems with pertinent positive or pertinent negative responses have been documented in the HPI. ROS Other: All systems not noted in ROS Statement are negative. Past Medical History Past Medical History: Coronary Artery Disease (CAD), Chest Pain / Angina, COPD, Hyperlipidemia, Hypertension, Myocardial Infarction ([place]), Osteoarthritis ([place]), Sleep Apnea/CPAP/BIPAP, Vascular Disorder Additional Past Medical History / Comment(s): PVD, neuropathy L leg, carpal tunnel syndrome bilateral wrists, numbness/tingling bilateral hands, goiter, scolosis Last Myocardial Infarction Date:: 2006 History of Any Multi-Drug Resistant Organisms: None Reported Past Surgical History: Section, Cholecystectomy, Coronary Bypass/CABG, Heart Catheterization With Stent, Pacemaker Additional Past Surgical History / Comment(s): triple bypass 2006. Pt has a "Visia AF MRI VR Surescan Defibrillator" implanted 11/05/17. Serial # [id number], Model #[id number]". Serial # [id number], Model # [id number] Past Anesthesia/Blood Transfusion Reactions: Family History of Problems w/ Ane sthesia Additional Past Anesthesia/Blood Transfusion Reaction / Comment(s): Sister had some kind of "allergic reaction" to anesthesia Date of Last Stent Placement:: 03/2015 Type of Cardiac Device: Permanent Pacemaker Device Placement Date:: 11/05/17 Past Psychological History: No Psychological Hx Reported Smoking Status: Current every day smoker Past Alcohol Use History: None Reported Past Drug Use History: None Reported - Past Family History Father Family Medical History: Coronary Artery Disease (CAD), Diabetes Mellitus, Myocardial Infarction ([place]) Additional Family Medical History / Comment(s): Father at age 50 of massive [place]. Father was an alcoholic. He was bipolar Mother Additional Family Medical History / Comment(s): Mother has scoliosis. She is 83 yrs old. Sister(s) Family Medical History: Congestive Heart Failure (CHF), Diabetes Mellitus General Exam Limitations: no limitations General appearance: alert, in no apparent distress Head exam: Present: atraumatic, normocephalic Eye exam: Present: normal appearance, PERRL ENT exam: Present: other (Mild pharyngeal erythema, no tonsillar swelling or exudate) Neck exam: Present: normal inspection. Absent: tenderness, meningismus, full ROM, lymphadenopathy Respiratory exam: Present: wheezes. Absent: respiratory distress, decreased breath sounds, prolonged expiratory Cardiovascular Exam: Present: regular rate, normal rhythm GI/Abdominal exam: Present: soft. Absent: distended, tenderness Extremities exam: Present: normal inspection, normal capillary refill. Absent: pedal edema, calf tenderness Neurological exam: Present: alert, oriented X3, CN II-XII intact. Absent: motor sensory deficit Psychiatric exam: Present: normal affect, normal mood Skin exam: Present: warm, dry, intact. Absent: cyanosis, diaphoretic Course Vital Signs 10/29/18 10/29/18 10/29/18 20:33 23:22 23:36 Temperature 98.5 F 99.0 F Pulse Rate 84 82 90 Respiratory 18 20 Rate Blood Pressure 133/72 118/58 O2 Sat by Pulse 97 100 Oximetry EKG Findings - EKG Comments: EKG Findings:: EKG: Sinus rhythm low voltage, T-wave inversion in aVL rate of 88, DE interval 162, QRS duration 78, QTC 425, no change compared to previous in July 2018. Medical Decision Making - Medical Decision Making 58-year-old female with cough, dyspnea, or throat. Mild pharyngeal erythema, no tonsillar swelling or exudate. She does receive workup in the emergency department with EKG, chest x-ray, laboratory testing. EKG is sinus rhythm, unchanged from prior. Chest x-ray negative for focal pneumonia. She has mild leukocytosis at 11. She is otherwise well-appearing with stable vital signs. - Lab Data Result diagrams: 10/29/18 23:00 10/29/18 23:00 Lab Results 10/29/18 10/29/18 10/29/18 Range/Units 23:00 23:00 23:00 WBC 11.0 H (3.8-10.6) k/uL RBC 4.39 (3.80-5.40) m/uL Hgb 12.9 (11.4-16.0) gm/dL Hct 39.8 (34.0-46.0) % MCV 90.6 (80.0-100.0) fL MCH 29.3 (25.0-35.0) pg MCHC 32.4 (31.0-37.0) g/dL RDW 16.0 H (11.5-15.5) % Plt Count 191 (150-450) k/uL Neutrophils % 78 % Lymphocytes % 15 % Monocytes % 4 % Eosinophils % 2 % Basophils % 1 % Neutrophils # 8.6 H (1.3-7.7) k/uL Lymphocytes # 1.6 (1.0-4.8) k/uL Monocytes # 0.4 (0-1.0) k/uL Eosinophils # 0.3 (0-0.7) k/uL Basophils # 0.1 (0-0.2) k/uL PT (9.0-12.0) sec INR (<1.2) APTT (22.0-30.0) sec Sodium 140 (137-145) mmol/L Potassium 4.3 (3.5-5.1) mmol/L Chloride 106 (98-107) mmol/L Carbon Dioxide 26 (22-30) mmol/L Anion Gap 8 mmol/L BUN 14 (7-17) mg/dL Creatinine 0.60 (0.52-1.04) mg/dL Est GFR (CKD-EPI)AfAm >90 (>60 ml/min/1.73 sqM) Est GFR (CKD-EPI)NonAf >90 (>60 ml/min/1.73 sqM) Glucose 130 H (74-99) mg/dL Calcium 9.7 (8.4-10.2) mg/dL Magnesium 2.0 (1.6-2.3) mg/dL Total Bilirubin 0.4 (0.2-1.3) mg/dL AST 23 (14-36) U/L ALT 28 (9-52) U/L Alkaline Phosphatase 118 (38-126) U/L Troponin I (0.000-0.034) ng/mL NT-Pro-B Natriuret Pep 96 pg/mL Total Protein 7.3 (6.3-8.2) g/dL Albumin 4.4 (3.5-5.0) g/dL 10/29/18 10/29/18 Range/Units 23:00 23:00 WBC (3.8-10.6) k/uL RBC (3.80-5.40) m/uL Hgb (11.4-16.0) gm/dL Hct (34.0-46.0) % MCV (80.0-100.0) fL MCH (25.0-35.0) pg MCHC (31.0-37.0) g/dL RDW (11.5-15.5) % Plt Count (150-450) k/uL Neutrophils % % Lymphocytes % % Monocytes % % Eosinophils % % Basophils % % Neutrophils # (1.3-7.7) k/uL Lymphocytes # (1.0-4.8) k/uL Monocytes # (0-1.0) k/uL Eosinophils # (0-0.7) k/uL Basophils # (0-0.2) k/uL PT 9.4 (9.0-12.0) sec INR 0.9 (<1.2) APTT 20.8 L (22.0-30.0) sec Sodium (137-145) mmol/L Potassium (3.5-5.1) mmol/L Chloride (98-107) mmol/L Carbon Dioxide (22-30) mmol/L Anion Gap mmol/L BUN (7-17) mg/dL Creatinine (0.52-1.04) mg/dL Est GFR (CKD-EPI)AfAm (>60 ml/min/1.73 sqM) Est GFR (CKD-EPI)NonAf (>60 ml/min/1.73 sqM) Glucose (74-99) mg/dL Calcium (8.4-10.2) mg/dL Magnesium (1.6-2.3) mg/dL Total Bilirubin (0.2-1.3) mg/dL AST (14-36) U/L ALT (9-52) U/L Alkaline Phosphatase (38-126) U/L Troponin I <0.012 (0.000-0.034) ng/mL NT-Pro-B Natriuret Pep pg/mL Total Protein (6.3-8.2) g/dL Albumin (3.5-5.0) g/dL Disposition Clinical Impression: COPD exacerbation Disposition: HOME SELF-CARE Condition: Good Instructions (If sedation given, give patient instructions): COPD (Chronic Obstructive Pulmonary Disease) (ED), Pharyngitis (ED) Prescriptions: methylPREDNISolone Dose Pack [Medrol Dose Pack] 4 mg PO DIRECTED #21 package Azithromycin [Zithromax Z-pack] 0 mg PO DIRECTED #6 tab Is patient prescribed a controlled substance at d/c from ED?: No Referrals: Fredi Dejesus MD [Primary Care Provider] - 1-2 days Time of Disposition: 23:53
[2018-10-29 23:12] LABS: Basophils # (A) 0.1 k/uL (0-0.2); Basophils % (A) 1 %; Eosinophils # (A) 0.3 k/uL (0-0.7); Eosinophils % (A) 2 %; HCT 39.8 % (34.0-46.0); HGB 12.9 gm/dL (11.4-16.0); Lymphocytes # (A) 1.6 k/uL (1.0-4.8); Lymphocytes % (A) 15 %; MCH 29.3 pg (25.0-35.0); MCHC 32.4 g/dL (31.0-37.0); MCV 90.6 fL (80.0-100.0); Mean Platelet Volume 8.5; Monocytes # (A) 0.4 k/uL (0-1.0); Monocytes % (A) 4 %; Neutrophils # (A) 8.6 k/uL (1.3-7.7); Neutrophils % (A) 78 %; Platelet Count 191 k/uL (150-450); RBC 4.39 m/uL (3.80-5.40)
[2018-10-29 23:21] LABS: ALT 28 U/L (9-52); AST 23 U/L (14-36); Albumin 4.4 g/dL (3.5-5.0); Alkaline Phosphatase 118 U/L (38-126); Anion Gap 8 mmol/L; Blood Urea Nitrogen 14 mg/dL (7-17); Calcium 9.7 mg/dL (8.4-10.2); Carbon Dioxide 26 mmol/L (22-30); Chloride 106 mmol/L (98-107); Glucose 130 mg/dL (74-99); Potassium 4.3 mmol/L (3.5-5.1); Sodium 140 mmol/L (137-145); Total Bilirubin 0.4 mg/dL (0.2-1.3); Total Protein 7.3 g/dL (6.3-8.2)
[2018-10-29 23:35] LABS: INR 0.9 (<1.2); Prothrombin Time 9.4 sec (9.0-12.0)
[2018-10-29] MEDS ORDERED: DEXAMETHASONE SOD PHOSPHATE 10 MG/ML 1 ML VIAL IM STA (23:35)
[2018-10-29 23:39] LABS: Partial Thromboplastin Time 20.8 sec (22.0-30.0)
[2018-10-29 23:43] VITALS: RESP 20
[2018-10-30 00:37] VITALS: BP 133/74; PULSE 92; TEMP 99.2
== END 2018-10-30 00:37 | disposition home or self-care (01) ==
LOC: EC 20:09
DX: J44.1 Chronic obstructive pulmonary disease with (acute) exacerbation (principal); D72.829 Elevated white blood cell count, unspecified; I25.119 Atherosclerotic heart disease of native coronary artery with unspecified angina pectoris; I25.2 Old myocardial infarction; I10 Essential (primary) hypertension; G47.30 Sleep apnea, unspecified; F17.200 Nicotine dependence, unspecified, uncomplicated; Z79.82 Long term (current) use of aspirin; Z79.899 Other long term (current) drug therapy; Z88.1 Allergy status to other antibiotic agents; Z88.8 Allergy status to other drugs, medicaments and biological substances; Z95.1 Presence of aortocoronary bypass graft; Z95.0 Presence of cardiac pacemaker; Z95.5 Presence of coronary angioplasty implant and graft
CPT/HCPCS: 36415; 94644; 93005; 83880; 80053; 83735; 84484; 85025; 85610; 85730; 71046; 99285; 96372; J1100

== ENCOUNTER → 2019-05-23 | Outpatient (CLI) | payer OTHER ==
[2019-05-23 16:42] LABS: African American GFR (CKD) 109.9 (60.0-200.0); Anion Gap 8.6 mmol/L (4.00-12.00); Carbon Dioxide 27.4 mmol/L (21.6-31.8); Chol/HDL Ratio 3.64; LDL Cholesterol,Calculated 71.8 mg/dL (0.0-131.0); Non-African American GFR(CKD) 94.8 (60.0-200.0); Potassium 4.5 mmol/L (3.5-5.5); VLDL Calculation 31.2 mg/dL (5.00-40.00)
== END | disposition home or self-care (01) ==
LOC: LABWHC1 09:03
PROVIDERS: ATTEND Internal Medicine Cardiovascular Disease
DX: I25.5 Ischemic cardiomyopathy (principal); E78.2 Mixed hyperlipidemia
CPT/HCPCS: 36415; 80051; 80061; 82565; 84450; 84460; 84520

== ENCOUNTER → 2020-05-07 | Outpatient (CLI) | payer MEDICARE, OTHER ==
[2020-05-07 16:04] LABS: Chol/HDL Ratio 3.79
== END | disposition home or self-care (01) ==
LOC: LABWHC1 09:52
PROVIDERS: ATTEND Internal Medicine Cardiovascular Disease
DX: E78.2 Mixed hyperlipidemia (principal)
CPT/HCPCS: 36415; 80061; 84450; 84460

== ENCOUNTER → 2020-06-04 | Outpatient (CLI) | payer MEDICARE, OTHER ==
[2020-06-04 14:24] VITALS: BP 141/72; PULSE 105; RESP 18; TEMP 98.2; BMI 50.1
--- NOTE | 2020-06-05 10:53 | P.HPBAR ---
Bariatric H&P - History & Physicial H&P Date: 06/04/20 History & Physicial: Visit/CC: follow up Patient initial contact: Initial weight: Initial weight in pounds: Height: 5 ft 4 in Initial BMI: Last weight: Current weight: 132.449 kg Current weight in pounds: 292.00 Current BMI: 50.1 [place] body weight (based on NIH guidelines): 54.431 kg Excess body weight loss: The patient is a 60 year-old F who presents for Bariatric Assessment. Patient presents today for presurgical consultation. He is interested in sleeve yesterday. Patient has an excellent understanding of the sleeve gastrectomy. Over the risks and benefits of procedure. He is morbidly obese. His BMI is 50 Past Medical History Past Medical History: Coronary Artery Disease (CAD), Chest Pain / Angina, COPD, Hyperlipidemia, Hypertension, Myocardial Infarction ([place]), Osteoarthritis ([place]), Sleep Apnea/CPAP/BIPAP, Vascular Disorder Additional Past Medical History / Comment(s): PVD, neuropathy L leg, carpal tunnel syndrome bilateral wrists, numbness/tingling bilateral hands, goiter, scolosis Last Myocardial Infarction Date:: 2006 History of Any Multi-Drug Resistant Organisms: None Reported Past Surgical History: Section, Cholecystectomy, Coronary Bypass/CABG, Heart Catheterization With Stent, Pacemaker Additional Past Surgical History / Comment(s): triple bypass 2006. Pt has a "Visia AF MRI VR Surescan Defibrillator" implanted 11/05/17. Serial # [id number], Model #[id number]". Serial # [id number], Model # [id number]. laser eye surgery mar and apr 2020 Past Anesthesia/Blood Transfusion Reactions: Family History of Problems w/ Anesthesia Additional Past Anesthesia/Blood Transfusion Reaction / Comm: Sister had some kind of "allergic reaction" to anesthesia Date of Last Stent Placement:: 03/2015 Type of Cardiac Device: Permanent Pacemaker Device Placement Date:: 11/05/17 Past Psychological History: No Psychological Hx Reported Additional Psychological History / Comment(s): Pt lives at home with and 1 adult son. Pt is independent. Pt is on disability. She drives a car. Uses a walker or can at home. Smoking Status: Former smoker Past Alcohol Use History: None Reported Additional Past Alcohol Use History / Comment(s): Pt states she started smoking in 1972 and had been a on and off smoker since. Past Drug Use History: None Reported - Past Family History Father Family Medical History: Coronary Artery Disease (CAD), Diabetes Mellitus, Myocardial Infarction ([place]) Additional Family Medical History / Comment(s): Father at age 50 of massive [place]. Father was an alcoholic. He was bipolar Mother Additional Family Medical History / Comment(s): Mother has scoliosis. She is 83 yrs old. Sister(s) Family Medical History: Congestive Heart Failure (CHF), Diabetes Mellitus Surgical - Exam Vital Signs Temp Pulse Resp BP 98.2 F 105 H 18 141/72 06/04/20 14:18 06/04/20 14:18 06/04/20 14:18 06/04/20 14:18 - General well developed, well nourished, no distress - Eyes PERRL - ENT normal pinna - Neck no masses - Respiratory normal expansion - Cardiovascular Rhythm: regular - Abdomen Abdomen: soft, non tender Bariatric Assessment & Plan Plan: Morbid obesity. Patient's BMI is 50. He'll be scheduled for EGD. He'll follow-up after this performed. Bariatric Checklist Checklist: Plan: Checklist: EGD: 1. Hiatal hernia: 2. H. Pylori: HgbA1c: Vitamin D: Smoking: Current every day smoker Primary care physician referral: dr cotter Psychiatry clearance: Cardiology clearance: Sleep study: Diet journal: VTE risk score: VTE risk level: Rehab needs at discharge:
== END | disposition home or self-care (01) ==
LOC: BARWHC3 13:57
PROVIDERS: ATTEND Surgery
DX: Z48.815 Encounter for surgical aftercare following surgery on the digestive system (principal); Z90.49 Acquired absence of other specified parts of digestive tract; Z87.891 Personal history of nicotine dependence
CPT/HCPCS: 99211

== ENCOUNTER 2020-06-28 17:37 | Observation (INO) | payer MEDICARE, OTHER ==
[2020-06-28 17:51] LABS: Glucose,Whole Blood 159 mg/dL (75-99)
--- NOTE | 2020-06-28 18:01 | ED ---
General Adult HPI - General Chief complaint: Neuro Symptoms/Deficit Stated complaint: L Facial Numbness, Blurry eyes Time Seen by Provider: 06/28/20 17:48 Source: patient, RN notes reviewed, old records reviewed Mode of arrival: wheelchair Limitations: no limitations - History of Present Illness Initial comments: 60-year-old female presented for evaluation of blurred vision and facial numbness. Symptoms began about 45 minutes prior to arrival and have resolved. There was no focal weakness. The numbness was isolated to the left side of her face. No speech difficulties. She states she did have some left shoulder pain however this is somewhat chronic and has been happening daily. She denies central chest pain. She has history of CAD status post bypass as well as stenting and pacemaker placement. She denies cough or fever, no dyspnea. No complaints at the time my evaluation. - Related Data Home Medications Medication Instructions Recorded Confirmed Aspirin EC [Ecotrin] 325 mg PO DAILY 04/26/14 06/04/20 Budesonide-Formot 160-4.5 Mcg 1 puff PO RT-BID PRN 04/08/16 06/04/20 [Symbicort 160-4.5 Mcg Inhaler] Ibuprofen [Motrin] 800 mg PO Q6H PRN 10/14/17 06/04/20 Metoprolol Tartrate [Lopressor] 50 mg PO DAILY 10/14/17 06/04/20 Ergocalciferol (Vitamin D2) 50,000 unit PO DIRECTED 05/10/18 06/04/20 [Vitamin D2] Furosemide [Lasix] 80 mg PO DAILY 05/10/18 06/04/20 Spironolactone 50 mg PO DAILY 05/10/18 06/04/20 Ipratropium-Albuterol Nebulize 3 ml INHALATION RT-Q4H PRN 08/10/18 06/04/20 [Duoneb 0.5 mg-3 mg/3 ml Soln] Previous Rx's Medication Instructions Recorded Atorvastatin Calcium [Lipitor] 40 mg PO HS #30 tab 03/29/15 Clopidogrel [Plavix] 75 mg PO DAILY #30 tab 03/29/15 lisinopriL [Prinivil] 20 mg PO DAILY #30 tablet 03/29/15 Azithromycin [Zithromax Z-pack] 0 mg PO DIRECTED #6 tab 10/29/18 methylPREDNISolone Dose Pack 4 mg PO DIRECTED #21 package 10/29/18 [Medrol Dose Pack] Allergies Allergy/AdvReac Type Severity Reaction Status Date / Time cephalexin monohydrate AdvReac Nausea & Verified 06/28/20 17:46 [From Keflex] Vomiting & Diarrhea prednisone AdvReac Nausea & Verified 06/28/20 17:46 Vomiting & Diarrhea Review of Systems ROS Statement: Those systems with pertinent positive or pertinent negative responses have been documented in the HPI. ROS Other: All systems not noted in ROS Statement are negative. Past Medical History Past Medical History: Coronary Artery Disease (CAD), Chest Pain / Angina, COPD, Hyperlipidemia, Hypertension, Myocardial Infarction (AK), Osteoarthritis (OA), Sleep Apnea/CPAP/BIPAP, Vascular Disorder Additional Past Medical History / Comment(s): PVD, neuropathy L leg, carpal nkechi pam syndrome bilateral wrists, numbness/tingling bilateral hands, goiter, scolosis Last Myocardial Infarction Date:: 2006 History of Any Multi-Drug Resistant Organisms: None Reported Past Surgical History: Section, Cholecystectomy, Coronary Bypass/CABG, Heart Catheterization With Stent, Pacemaker Additional Past Surgical History / Comment(s): triple bypass 2006. Pt has a "Visia AF MRI VR Surescan Defibrillator" implanted 11/05/17. Serial # [id number], Model #[id number]". Serial # [id number], Model # [id number]. laser eye surgery mar and apr 2020 Past Anesthesia/Blood Transfusion Reactions: Family History of Problems w/ Anesthesia Additional Past Anesthesia/Blood Transfusion Reaction / Comment(s): Sister had some kind of "allergic reaction" to anesthesia Date of Last Stent Placement:: 03/2015 Type of Cardiac Device: Permanent Pacemaker Device Placement Date:: 11/05/17 Past Psychological History: No Psychological Hx Reported Smoking Status: Former smoker Past Alcohol Use History: None Reported Past Drug Use History: None Reported - Past Family History Father Family Medical History: Coronary Artery Disease (CAD), Diabetes Mellitus, Myocardial Infarction (AK) Additional Family Medical History / Comment(s): Father at age 50 of massive AK. Father was an alcoholic. He was bipolar Mother Additional Family Medical History / Comment(s): Mother has scoliosis. She is 83 yrs old. Sister(s) Family Medical History: Congestive Heart Failure (CHF), Diabetes Mellitus General Exam Limitations: no limitations General appearance: alert, in no apparent distress, appears intoxicated Head exam: Present: atraumatic, normocephalic, normal inspection Eye exam: Present: normal appearance, PERRL ENT exam: Present: normal exam, mucous membranes moist Neck exam: Present: normal inspection. Absent: tenderness, meningismus Respiratory exam: Present: normal lung sounds bilaterally. Absent: respiratory distress, wheezes Cardiovascular Exam: Present: regular rate, normal rhythm GI/Abdominal exam: Present: soft. Absent: distended, tenderness, guarding, rebound Extremities exam: Present: pedal edema Neurological exam: Present: alert, oriented X3, CN II-XII intact, other (NIH of 0). Absent: motor sensory deficit Psychiatric exam: Present: normal affect, normal mood Skin exam: Present: warm, dry, intact. Absent: cyanosis, diaphoretic Course Vital Signs 06/28/20 06/28/20 17:41 19:41 Temperature 98.4 F Pulse Rate 81 77 Respiratory 18 16 Rate Blood Pressure 120/74 121/72 O2 Sat by Pulse 97 97 Oximetry EKG Findings - EKG Comments: EKG Findings:: EKG: Sinus rhythm with PAC low-voltage, T-wave abnormality in aVL, no ST segment elevation, ventricular rate of 78, OK interval 184, QRS duration 82, QTC 435 Medical Decision Making - Medical Decision Making 60-year-old female presenting for evaluation of blurry vision, left facial numbness. Symptoms began just prior to arrival. Resolved at the time my initial evaluation, NIH is 0. Patient has 5 out of 5 strength throughout, normal sensation, no ataxia. Head CT performed which is negative for intracranial hemorrhage or mass effect, no acute findings. Chest x-ray negative for acute cardiopulmonary disease. Patient has a normal CBC with some mild leukocytosis. She has normal electrolytes. Negative troponin. She is observed in the emergency department without any change in her neurological status or exam. I did discuss case with Dr. Dejesus. She will be admitted for further evaluation of TIA versus CVA. - Lab Data Result diagrams: 06/28/20 18:02 06/28/20 18:02 Lab Results 06/28/20 06/28/20 06/28/20 Range/Units 17:49 18:02 18:02 WBC 12.5 H (3.8-10.6) k/uL RBC 5.82 H (3.80-5.40) m/uL Hgb 16.8 H (11.4-16.0) gm/dL Hct 51.8 H (34.0-46.0) % MCV 89.0 (80.0-100.0) fL MCH 28.9 (25.0-35.0) pg MCHC 32.5 (31.0-37.0) g/dL RDW 14.7 (11.5-15.5) % Plt Count 164 (150-450) k/uL MPV 9.1 Neutrophils % 75 % Lymphocytes % 18 % Monocytes % 4 % Eosinophils % 2 % Basophils % 1 % Neutrophils # 9.3 H (1.3-7.7) k/uL Lymphocytes # 2.2 (1.0-4.8) k/uL Monocytes # 0.5 (0-1.0) k/uL Eosinophils # 0.2 (0-0.7) k/uL Basophils # 0.1 (0-0.2) k/uL PT 11.0 (9.0-12.0) sec INR 1.0 (<1.2) APTT 23.4 (22.0-30.0) sec Sodium (137-145) mmol/L Potassium (3.5-5.1) mmol/L Chloride (98-107) mmol/L Carbon Dioxide (22-30) mmol/L Anion Gap mmol/L BUN (7-17) mg/dL Creatinine (0.52-1.04) mg/dL Est GFR (CKD-EPI)AfAm (>60 ml/min/1.73 sqM) Est GFR (CKD-EPI)NonAf (>60 ml/min/1.73 sqM) Glucose (74-99) mg/dL POC Glucose (mg/dL) 159 H (75-99) mg/dL POC Glu Official Court Interpreter ID Svacha, II, Chuy Calcium (8.4-10.2) mg/dL Total Bilirubin (0.2-1.3) mg/dL AST (14-36) U/L ALT (4-34) U/L Alkaline Phosphatase (38-126) U/L Troponin I (0.000-0.034) ng/mL Total Protein (6.3-8.2) g/dL Albumin (3.5-5.0) g/dL 06/28/20 06/28/20 Range/Units 18:02 18:02 WBC (3.8-10.6) k/uL RBC (3.80-5.40) m/uL Hgb (11.4-16.0) gm/dL Hct (34.0-46.0) % MCV (80.0-100.0) fL MCH (25.0-35.0) pg MCHC (31.0-37.0) g/dL RDW (11.5-15.5) % Plt Count (150-450) k/uL MPV Neutrophils % % Lymphocytes % % Monocytes % % Eosinophils % % Basophils % % Neutrophils # (1.3-7.7) k/uL Lymphocytes # (1.0-4.8) k/uL Monocytes # (0-1.0) k/uL Eosinophils # (0-0.7) k/uL Basophils # (0-0.2) k/uL PT (9.0-12.0) sec INR (<1.2) APTT (22.0-30.0) sec Sodium 133 L (137-145) mmol/L Potassium 5.4 H (3.5-5.1) mmol/L Chloride 103 (98-107) mmol/L Carbon Dioxide 22 (22-30) mmol/L Anion Gap 8 mmol/L BUN 14 (7-17) mg/dL Creatinine 0.59 (0.52-1.04) mg/dL Est GFR (CKD-EPI)AfAm >90 (>60 ml/min/1.73 sqM) Est GFR (CKD-EPI)NonAf >90 (>60 ml/min/1.73 sqM) Glucose 149 H (74-99) mg/dL POC Glucose (mg/dL) (75-99) mg/dL POC Glu Official Court Interpreter ID Calcium 9.3 (8.4-10.2) mg/dL Total Bilirubin 0.8 (0.2-1.3) mg/dL AST 43 H (14-36) U/L ALT 22 (4-34) U/L Alkaline Phosphatase 126 (38-126) U/L Troponin I <0.012 (0.000-0.034) ng/mL Total Protein 7.6 (6.3-8.2) g/dL Albumin 4.2 (3.5-5.0) g/dL Disposition Clinical Impression: Transient cerebral ischemia Disposition: ADMITTED IP TO THIS [facility] Condition: Stable Is patient prescribed a controlled substance at d/c from ED?: No Referrals: Fredi Dejesus MD [Primary Care Provider] - 1-2 days Decision to Admit Reason: Admit from EC Decision Date: 06/28/20 Decision Time: 20:17
[2020-06-28 18:19] LABS: Basophils # (A) 0.1 k/uL (0-0.2); Basophils % (A) 1 %; Eosinophils # (A) 0.2 k/uL (0-0.7); Eosinophils % (A) 2 %; HCT 51.8 % (34.0-46.0); HGB 16.8 gm/dL (11.4-16.0); Lymphocytes # (A) 2.2 k/uL (1.0-4.8); Lymphocytes % (A) 18 %; MCH 28.9 pg (25.0-35.0); MCHC 32.5 g/dL (31.0-37.0); Mean Platelet Volume 9.1; Monocytes # (A) 0.5 k/uL (0-1.0); Monocytes % (A) 4 %; Neutrophils # (A) 9.3 k/uL (1.3-7.7); Neutrophils % (A) 75 %; Platelet Count 164 k/uL (150-450); RBC 5.82 m/uL (3.80-5.40); RDW 14.7 % (11.5-15.5); WBC 12.5 k/uL (3.8-10.6)
[2020-06-28 18:27] LABS: ALT 22 U/L (4-34); AST 43 U/L (14-36); African American GFR (CKD) >90 (>60 ml/min/1.73 sqM); Albumin 4.2 g/dL (3.5-5.0); Alkaline Phosphatase 126 U/L (38-126); Anion Gap 8 mmol/L; Blood Urea Nitrogen 14 mg/dL (7-17); Calcium 9.3 mg/dL (8.4-10.2); Carbon Dioxide 22 mmol/L (22-30); Chloride 103 mmol/L (98-107); Glucose 149 mg/dL (74-99); Non-African American GFR(CKD) >90 (>60 ml/min/1.73 sqM); Potassium 5.4 mmol/L (3.5-5.1); Sodium 133 mmol/L (137-145); Total Bilirubin 0.8 mg/dL (0.2-1.3); Total Protein 7.6 g/dL (6.3-8.2)
[2020-06-28 18:52] LABS: Partial Thromboplastin Time 23.4 sec (22.0-30.0)
--- NOTE | 2020-06-28 19:03 | CT ---
EXAMINATION TYPE: CT brain wo con DATE OF EXAM: 06/28/2020 COMPARISON: 04/05/2015 HISTORY: Dizziness, facial numbness CT DLP: 1118.4 mGycm Automated exposure control for dose reduction was used. Ventricles and sulci appear normal. There is no mass effect nor midline shift. There is no sign of in tracranial hemorrhage. The calvarium is intact. There is no evidence of cerebral edema. IMPRESSION: Negative CT scan of the brain. No adverse change.
--- NOTE | 2020-06-28 19:05 | XR ---
EXAMINATION TYPE: XR chest 2V DATE OF EXAM: 06/28/2020 COMPARISON: 10/29/2018 HISTORY: Altered mental status. Facial numbness. TECHNIQUE: 2 views FINDINGS: Heart is normal. Lungs are clear of consolidation. There are no hilar masses. There is left axillary pacemaker. There are sternal wires. Bony thorax is intact. There is no pleural effusion. IMPRESSION: No active cardiopulmonary disease. Normal heart. No change.
[2020-06-28] MEDS ORDERED: ASPIRIN 325 MG TAB PO STA (19:34)
[2020-06-28] MEDS ORDERED: ACETAMINOPHEN TAB 325 MG TAB PO PRN (20:00)
[2020-06-28] MEDS: SODIUM CHLORIDE 0.9% 1,000 ML IV SCH (20:38)
--- NOTE | 2020-06-28 22:04 | US ---
EXAMINATION TYPE: US carotid duplex BILAT DATE OF EXAM: 06/28/2020 COMPARISON: NONE CLINICAL HISTORY: Stenosis. Stenosis per order. Hx myocardial infarction, coronary bypass. Current sm oker. Hypertension, hyperlipidemia. EXAM MEASUREMENTS: RIGHT: Peak Systolic Velocity (PSV) cm/sec ----- Right CCA: 73.8 ----- Right ICA: 76.4 ----- Right ECA: 115.2 ICA/CCA ratio: 1.0 RIGHT: End Diastole cm/sec ----- Right CCA: 15.1 ----- Right ICA: 21.7 ----- Right ECA: 14.7 LEFT: Peak Systolic Velocity (PSV) cm/sec ----- Left CCA: 75.3 ----- Left ICA: 84.1 ----- Left ECA: 112.0 ICA/CCA ratio: 1.1 LEFT: End Diastole cm/sec ----- Left CCA: 21.0 ----- Left ICA: 25.4 ----- Left ECA: 15.1 VERTEBRALS (direction of flow): Right Vertebral: Antegrade Left Vertebral: Antegrade Rhythm: Normal Intimal thickening seen bilaterally. Plaque seen bilateral bulbs, ICA, and ECA. No elevated velocitie s at this time. IMPRESSION: There is antegrade flow in the vertebral arteries. The images and measurements suggest less than 25% stenosis in both internal carotid arteries. Criteria for Assigning % of Stenosis / Diameter reduction (Estimation based on the indirect measurements of the internal carotid artery velocities (ICA PSV). 1. Normal (no stenosis)=ICA PSV < 125 cm/s: ratio < 2.0: ICA EDV<40 cm/s. 2. Less than 50% stenosis=ICA PSV < 125 cm/s: ratio < 2.0: ICA EDV<40 cm/s. 3. 50 to 69% stenosis=ICA PSV of 125 to 230 cm/s: ration 2.0 ? 4.0: ICA EDV 40-100 cm/s. 4. Greater than 70% stenosis to near occlusion= ICA PSV > 230 cm/s: ratio > 4.0: ICA EDV > 100 cm/s. 5. Near occlusion= ICA PSV velocities may be low or undetectable: variable ratio and ICA EDV. 6. Total occlusion=unable to detect flow.
[2020-06-29 03:55] LABS: Cholesterol 158 mg/dL (<200); HDL Cholesterol 38 mg/dL (40-60); LDL Cholesterol,Calculated 74 mg/dL (0-99); Triglycerides 232 mg/dL (<150)
[2020-06-29] MEDS: SODIUM CHLORIDE 0.9% 1,000 ML IV SCH ×3 (04:40→21:20)
[2020-06-29] MEDS: ASPIRIN 325 MG TAB PO SCH (08:26)
[2020-06-29] MEDS: CLOPIDOGREL 75 MG TAB PO SCH (10:26)
--- NOTE | 2020-06-29 11:00 | ECHOF ---
Referral Reason:Thrombus MEASUREMENTS -------- HEIGHT: 162.6 cm WEIGHT: 131.5 kg BP: 119/67 RVIDd: 3.6 cm (< 3.3) IVSd: 1.6 cm (0.6 - 1.1) LVIDd: 4.4 cm (3.9 - 5.3) LVPWd: 1.1 cm (0.6 - 1.1) IVSs: 1.7 cm LVIDs: 3.5 cm LVPWs: 1.4 cm LAESV Index (A-L): 27.44 ml/m Ao Diam: 2.8 cm (2.0 - 3.7) AV Cusp: 2.1 cm (1.5 - 2.6) LA Diam: 4.7 cm (2.7 - 3.8) MV EXCURSION: 15.009 mm (> 18.000) MV EF SLOPE: 25 mm/s (70 - 150) EPSS: 1.0 cm MV E Agustin: 1.02 m/s MV DecT: 235 ms MV A Agustin: 1.10 m/s MV E/A Ratio: 0.93 RAP: 5.00 mmHg RVSP: 43.92 mmHg FINDINGS -------- Sinus rhythm. This was a technically difficult study with suboptimal views. The left ventricular size is normal. There is moderate concentric left ventricular hypertrophy. O verall left ventricular systolic function is mildly impaired with, an EF between 45 - 50 %. Septal wall motion is delayed and consistent with prior cardiac surgery. The right ventricle is mildly enlarged. Normal LA size by volume 22+/-6 ml/m2. The right atrium was not well visualized. Electronic pacemaker lead seen in the right atrial cavity . 5.0mg of Lumason was utilized for enhancement of images Interatrial and interventricular septum intact. The aortic valve was not well visualized. There is no evidence of aortic regurgitation. There is no evidence of aortic stenosis. The mitral valve was not well visualized. Mild mitral regurgitation is present. [id number] tricuspid regurgitation present. There is mild to moderate pulmonary hypertension. The right ventricular systolic pressure, as measured by Doppler, is 43.92mmHg. The pulmonic valve was not well visualized. The aortic root size is normal. IVC Not well visulized. There is no pericardial effusion. CONCLUSIONS -------- 1. The left ventricular size is normal. 2. There is moderate concentric left ventricular hypertrophy. 3. Overall left ventricular systolic function is mildly impaired with, an EF between 45 - 50 %. 4. The right ventricle is mildly enlarged. 5. Mild mitral regurgitation is present. 6. [id number] tricuspid regurgitation present. 7. There is mild to moderate pulmonary hypertension. 8. The right ventricular systolic pressure, as measured by Doppler, is 43.92mmHg. CONTROL SYSTEMS DEVELOPER: Elke Negron RDCS
--- NOTE | 2020-06-29 11:23 | P.CNNES ---
History of Present Illness Consult date: 06/29/20 Requesting physician: Heber Manriquez Reason for Consult: Concern for TIA for episode of blurred vision and facial numbness History of Present Illness: This is a 60-year-old woman with medical history of coronary artery disease s/p stent and CABG,s/p pacemaker, atrial fibrillation on Xarelto, hyperlipidemia, hypertension, myocardial infarction, sleep apnea, bilateral carpal tunnel syndrome that presented to the emergency department on 06/28/2020 for episode of bilateral blurred vision and left facial numbness that last few seconds. The patient stated that the episode occurred on 06/28/2020 and happened around 6 PM were her bilateral vision or blurry and then she felt there constricting from the top to bottom slightly and then she felt numbness over the left cheek the episode lasted for a few seconds and resolved. She denied of any focal weakness, any numbness besides the left cheek, any hearing loss or ringing in the ears, any difficulty getting her words out or swallowing. She stated that that she's been having headaches on a daily basis and she said that over the right frontal as well as occipital and it lasts for hours to the entire day her headache yesterday did not get any worse and her was her typical headache she also feels that she has a very bad sinus just above the nose and she feels stuffed at night. Currently the patient is back to baseline and the she has a no further complaints of blurry vision or numbness. She said that she has history of tobacco use where she smoked for just above for years and she smoked half a pack a day and she quit about 2 years ago. She denies of any alcohol use that. She denies any history of illicit drug use. She denies any history of strokes or TIAs in the past. She doesn't have history of sleep apnea but the she was told that she cannot use the CPAP since the she had the pacemaker according to her. She follows up with a job training specialist as an outpatient and that she was placed on the Xarelto. He stated that she does not know why she is on Xarelto. She is also on Plavix 75 mg daily and she was discontinued the aspirin by the cardiol ogist since she was told she doesn't need it anymore. She is on Lipitor 40 mg daily. I spoke with cardiology nurse practioner (Tiff Nguyen) about why the patient was on the Xarelto and the according to her that per cardiology note from the office patient has AICD and is interrogated and showed episodes of atrial fibrillation. Work-up the hospital consisted of: Initial vital signs: Blood pressure of 120/74, heart rate of 81, respiratory of 18, pulse ox of 97% at room air, temperature of 98.4 Fahrenheit oral respiratory rate of 18. CT of the head is reported as negative CT scan of the brain. No adverse change. Carotid duplex is reported as there is antegrade flow in the vertebral arteries at. The images and measurements suggest less than 25% stenosis in both internal carotid arteries. EKG is reported as sinus rhythm with premature atrial complexes with aberrant conduction. Low voltage QRS. Abnormal QRS T angle, consider primary T-wave abnormality. Abnormal EKG. White blood cell is 12.5 which is elevated and it's predominantly neutrophilic. Sodium is 133 which is minimally low and the potassium is 5.4 which is elevated Initial POC glucose is 159. Lipid panel: Triglyceride 232, cholesterol is 158, LDL 74 and HDL is 38 AST of 43 which is slightly elevated in the ALT of 22 [place] virus PCR was not detected Review of Systems Review of system: The 12 point system was reviewed and apparent positive and negative per HPI. Past Medical History Past Medical History: Coronary Artery Disease (CAD), Chest Pain / Angina, COPD, Hyperlipidemia, Hypertension, Myocardial Infarction ([place]), Osteoarthritis (OA), Sleep Apnea/CPAP/BIPAP, Vascular Disorder Additional Past Medical History / Comment(s): PVD, neuropathy L leg, carpal tunnel syndrome bilateral wrists, numbness/tingling bilateral hands, goiter, scolosis Last Myocardial Infarction Date:: 2006 History of Any Multi-Drug Resistant Organisms: None Reported Past Surgical History: Section, Cholecystectomy, Coronary Bypass/CABG, Heart Catheterization With Stent, Pacemaker Additional Past Surgical History / Comment(s): triple bypass 2006. Pt has a "Visia AF MRI VR Surescan Defibrillator" implanted 11/05/17. Serial # [id number], Model #[id number]". Serial # [id number], Model # [id number]. laser eye surgery mar and apr 2020 Past Anesthesia/Blood Transfusion Reactions: Family History of Problems w/ Anesthesia Additional Past Anesthesia/Blood Transfusion Reaction / Comment(s): Sister had some kind of "allergic reaction" to anesthesia Date of Last Stent Placement:: 03/2015 Type of Cardiac Device: Permanent Pacemaker Device Placement Date:: 11/05/17 Past Psychological History: No Psychological Hx Reported Additional Psychological History / Comment(s): Pt lives at home with and 1 adult son. Pt is independent. Pt is on disability. She drives a car. Uses a walker or can at home. Smoking Status: Current some day smoker Past Alcohol Use History: None Reported Additional Past Alcohol Use History / Comment(s): Pt states she started smoking in 1972 and had been a on and off smoker since. Past Drug Use History: None Reported - Past Family History Father Family Medical History: Coronary Artery Disease (CAD), Diabetes Mellitus, Myocardial Infarction ([place]) Additional Family Medical History / Comment(s): Father at age 50 of massive [place]. Father was an alcoholic. He was bipolar Mother Additional Family Medical History / Comment(s): Mother has scoliosis. She is 83 yrs old. Sister(s) Family Medical History: Congestive Heart Failure (CHF), Diabetes Mellitus Medications and Allergies Home Medications Medication Instructions Recorded Confirmed Type Atorvastatin Calcium [Lipitor] 40 mg PO HS #30 tab 03/29/15 06/29/20 Rx Clopidogrel [Plavix] 75 mg PO DAILY #30 tab 03/29/15 06/29/20 Rx lisinopriL [Prinivil] 20 mg PO DAILY #30 tablet 03/29/15 06/29/20 Rx Ibuprofen [Motrin] 800 mg PO Q6H PRN 10/14/17 06/29/20 History Metoprolol Tartrate [Lopressor] 50 mg PO DAILY 10/14/17 06/29/20 History Spironolactone 50 mg PO DAILY 05/10/18 06/29/20 History Fluticasone/Salmeterol [Advair Hfa 1 puff INHALATION RT-BID 06/29/20 06/29/20 History 115-21 Mcg Inhaler] Rivaroxaban [Xarelto] 20 mg PO DAILY 06/29/20 06/29/20 History Allergies Allergy/AdvReac Type Severity Reaction Status Date / Time cephalexin monohydrate AdvReac Nausea & Verified 06/29/20 06:27 [From Keflex] Vomiting & Diarrhea prednisone AdvReac Nausea & Verified 06/29/20 06:27 Vomiting & Diarrhea Physical Examination - Vital Signs Vital Signs: Vital Signs Temp Pulse Pulse Resp BP BP BP 06/29/20 07:29 98.0 F 74 16 118/66 06/29/20 04:26 97.8 F 78 17 119/67 06/29/20 02:47 98.2 F 80 16 124/78 06/29/20 02:00 98.2 F 76 16 121/73 06/29/20 01:00 98.1 F 74 16 120/72 06/28/20 23:00 98.1 F 75 16 121/73 06/28/20 21:00 98.4 F 91 16 120/79 06/28/20 20:42 98.4 F 91 16 120/79 06/28/20 20:36 97.5 F L 87 16 109/63 06/28/20 19:41 77 16 121/72 06/28/20 17:41 98.4 F 81 18 120/74 Pulse Ox 06/29/20 07:29 94 L 06/29/20 04:26 96 06/29/20 02:47 95 06/29/20 02:00 95 06/29/20 01:00 94 L 06/28/20 23:00 94 L 06/28/20 21:00 94 L 06/28/20 20:42 94 L 06/28/20 20:36 96 06/28/20 19:41 97 06/28/20 17:41 97 Intake and Output 06/28/20 06/29/20 06/29/20 22:59 06:59 14:59 Intake Total 1450 Balance 1450 Intake: Intake, IV Titration 1000 Amount Sodium Chloride 0.9% 1, 1000 000 ml @ 100 mls/hr IV . Q10H [facility] [place] Rx#:[id number] Oral 450 Other: # Voids 3 Weight 131.542 kg GENERAL: The patient is lying in bed and is not in acute distress. CHEST: The heart rate is regular rate rhythm. No murmurs to auscultation. No carotid bruit bilaterally. LUNG: Clear to auscultation bilaterally no wheezing noted throughout. Not labored breathing. ABDOMEN/GI: Bowel sounds present in all 4 quadrants. No tenderness to palpation throughout. NEUROLOGICAL: Higher mental function: The patient is awake, alert, oriented to self, place and time. Patient is following commands. No aphasia and no neglect. Cranial nerves: The pupils are round, equal and reactive to light and accommodation. Visual camarena are full to confrontation throughout. Extraocular movement is intact no nystagmus is noted. Facial sensation is normal to touch throughout. The facial strength is normal throughout. Hearing is normal bilaterally to hand rub. Tongue is midline and moved [id number] without any difficulty. No dysarthria is noted. Shoulder shrug is normal bilaterally. Motor: The strength is 5 over 5 throughout. Normal tone and bulk. Cerebellum: Normal finger to nose bilaterally. Sensation: Sensation is normal to touch throughout. Reflexes (right/left): 2+ throughout uppers except lower extremities are 1+ Plantars are downgoing bilaterally. Results Coagulation study is reviewed and it's normal - Laboratory Findings CBC and BMP: 06/28/20 18:02 06/28/20 18:02 Abnormal Lab Findings: Abnormal Labs 06/28/20 06/28/20 06/28/20 17:49 18:02 18:02 WBC 12.5 H RBC 5.82 H Hgb 16.8 H Hct 51.8 H Neutrophils # 9.3 H Sodium 133 L Potassium 5.4 H Glucose 149 H POC Glucose (mg/dL) 159 H AST 43 H Triglycerides HDL Cholesterol 06/28/20 18:02 WBC RBC Hgb Hct Neutrophils # Sodium Potassium Glucose POC Glucose (mg/dL) AST Triglycerides 232 H HDL Cholesterol 38 L Assessment and Plan Assessment: This is a 60-year-old woman presented to the emergency department on 06/28/2020 for a transient episode of blurred vision and left facial numbness. Patient is back to baseline. Transient episode of blurred vision and left facial numbness (V2 distribuation) likely due to transient ischemic attack History of bilateral carpal tunnel syndrome Cephalgia and seems possibly sinus headaches Atrial fibrillation on Xarelto Sleep apnea on CPAP Hypertension Hyperlipidemia History of coronary artery disease s/p stent and CABG,s/p AICD History of myocardial infarction Ex-Tobacco use (smoked for >40 years 1/2 PPD and stopped 2 years ago) Plan: CT of the head is reported as negative CT scan of the brain. No adverse change. Carotid duplex is reported as there is antegrade flow in the vertebral arteries at. The images and measurements suggest less than 25% stenosis in both internal carotid arteries. I ordered CTA of the head and neck. Patient cannot get MRI since has AICD Lipid panel: Triglyceride 232, cholesterol is 158, LDL 74 and HDL is 38. I ordered TSH 2-D echo was ordered by the ED team is pending. Patient was given aspirin 325 once in the ED then was started on aspirin 35 daily. I restarted the Plavix 75mg daily. Since the patient failed Xarelto and had a transient ischemic attack I recommend considering switching Xarelto to Eliquis and continuing with a Plavix especially that she has significant coronar y artery disease stenting and discontinuing Aspirin. I restarted Lipitor 40 mg daily. As of the elevated triglyceride I started the patient on fenofibrate 54mg daily. Continue every 4 neuro checks I placed the patient on the cardiac monitoring. Physical therapy, occupational therapy and speech therapy are consulted by the ED team. Regarding the patient the headaches I recommended the patient follow-up with ENT (since can be sinus) as well as a neurologist for headaches and transient ischemic attack as outpatient within 1-2 weeks. We'll defer the rest of the medical management to the primary team. The plan was discussed with the patient's nurse. Thank you for the consultation. UPDATE: CT of the head and neck was reported as no significant stenosis in the common or proximal internal carotid arteries. Findings correlate with recent carotid ultrasound. No significant stenosis or aneurysm at the level of [place]. Tortuous course of the carotid vessels bilaterally. There is moderate distal calcified plaque bilaterally. There is slight cylinidrical prominence and /or 7.3 mm aneurysmal change to the supraclininoid segment left internal carotid artery near side of tortuosity. I will consult endovascular team for diagnostic angiogram. Pedro See MD Neuro-Hospitalist Time with Patient: Greater than 30
[2020-06-29] MEDS: FENOFIBRATE 54 MG TAB PO SCH (12:54)
[2020-06-29] MEDS ORDERED: IBUPROFEN 800 MG TAB PO PRN (13:02)
--- NOTE | 2020-06-29 13:09 | CT ---
EXAMINATION TYPE: CT angio head neck DATE OF EXAM: 06/29/2020 HISTORY: Left cheek numbness, headache and dizziness. COMPARISON: Carotid ultrasound from yesterday CT DLP: 510 mGycm. Automated Exposure Control for Dose Reduction was Utilized. TECHNIQUE: CTA scan of the head and neck are performed with IV Contrast, patient injected with 65 mL of Isovue 370, axial images are obtained, coronal and sagittal reformatted images are reviewed. Thre e-D reconstructed images are created on an independent workstation and reviewed. FINDINGS: Carotid/Vascular Structures: Normal 3 vessel origin from the aortic arch with mild to moderate calcif ied plaque . Normal origin right common carotid artery from brachiocephalic artery. Some artifact at origin due to adjacent hyperdense brachiocephalic vein into SVC. Some tortuous course to the right co mmon carotid artery with mild calcified plaque. There is more mild to moderate calcified plaque at ri ght carotid bulb extending into proximal internal and external carotid arteries without significant s tenosis. Tortuous course to the right internal carotid artery with more moderate calcified plaque inv olving petrous and supraclinoid segments. No significant plaque or stenosis along course of left comm on carotid artery with slight medial course distally. There is mild to moderate mixed plaque at carot id bulb without significant stenosis. Tortuous course to the proximal left internal carotid artery. M oderate calcified plaque involving petrous and supraclinoid segments. There is a dominant or larger caliber left vertebral artery. This fills the basilar artery. There is hypoplastic left P1 segment with filling of P2 segment due to patent but tortuous posterior communica ting artery on the left. There is hypoplastic right posterior indicating artery. There is no signific ant focal stenosis or aneurysmal change in the posterior circulation. Anterior circulation shows absent or hypoplastic anterior communicating artery. No significant focal stenosis or aneurysmal change is present. There is focal asymmetric 7.3 mm cylindrical prominence or aneurysmal dilatation of the supraclinoid segment left internal carotid artery seen best image 203 se yunior 7 where caliber measures 5.1 mm just superior to this image 220 and 5.4 mm proximal to this imag e 195. Other: Partial visualization of pacemaker-type device. Partial visualization of sternal wires and med iastinal clips. Asymmetric right thyroid prominence with right thyroid nodules. Correlate clinically. Mild emphysematous change and visualized upper lungs. IMPRESSION: 1. No significant stenosis in common or proximal internal carotid arteries. Findings correlate with r ecent carotid ultrasound. 2. No significant stenosis or aneurysm at the level of the [place]. 3. Tortuous course to the carotid vessels bilaterally. There is moderate distal calcified plaque bila terally. There is slight cylindrical prominence and/or 7.3 mm aneurysmal change to the supraclinoid s egment left internal carotid artery near site of tortuosity.
[2020-06-29] MEDS: SYMBICORT 160-4.5 MCG INHALER INHALATION SCH (19:27)
--- NOTE | 2020-06-29 19:36 | HP ---
HISTORY AND PHYSICAL CHIEF COMPLAINT: Possible TIA. HISTORY OF PRESENT ILLNESS: This is another admission for this 60-year-old white female with a history of hypertension, hyperlipidemia, hypothyroidism, coronary artery disease. She presented to the emergency room with some unusual symptoms, including visual changes, right posterior headache and left cheek numbness. She had no chest pain. She had no dysarthria, confusion, change in the or the hearing, chest pain, etc. In the emergency room her studies were negative. REVIEW OF SYSTEMS: She has had no other complaints or problems of late. She has had no palpitations. She does not have a history of migraines. Past medical history, family history, and personal and social histories reveal that she is ALLERGIC TO CEPHALOSPORINS. MEDICATIONS: Medications include: 1. Spironolactone 50 mg once a day. 2. Ibuprofen 800 mg q.i.d. p.r.n. 3. Metoprolol tartrate 50 mg once a day. 4. Vitamin D. 5. Atorvastatin 40 once a day. 6. Advair 115-21 one puff twice a day. 7. Lisinopril 20 mg once a day. 8. Eliquis 5 mg twice a day. 9. Updrafts with DuoNeb. 10.Plavix 75 once a day. 11.Aspirin. In the past she has had angioplasty. She used to smoke but does not any longer. PHYSICAL EXAMINATION: Blood pressure is 142/86 with a pulse of 69, respirations of 27, and she is afebrile. In general she appeared to be overweight, in no acute distress. Skin color is normal. Skin is warm and dry. Lymph nodes were not enlarged. Head, ears, eyes, nose, mouth and throat were normal. Neck veins were not distended. Carotids were normal. Chest is clear to auscultation. There are no rales or rhonchi. Cardiac exam demonstrated sinus tachycardia with no murmurs or extra sounds. The abdomen is protuberant, soft and nontender. There are no masses. Extremities are normal. Neurologically she was intact. Cranial nerves were intact and sensory motor exam was normal. She is admitted to the hospital with the diagnoses: 1. Right posterior headache. 2. Left cheek hypesthesia. 3. Visual changes. 4. ? Transient ischemic attack. 5. History of coronary artery disease. 6. History of hypertension. PLAN: 1. Bedrest. 2. IV fluids. 3. Frequent monitoring of her neurologic status and vital signs. 4. Carotid duplex imaging. 5. Neurology consult. CRISTIAN / CATRACHO: [id number] /
--- NOTE | 2020-06-29 19:42 | PN ---
PROGRESS NOTE DATE OF SERVICE: 06/29/2020 CHIEF COMPLAINT: Possible TIA. HISTORY OF PRESENT ILLNESS: This lady is doing well today and she has no residual dysesthesias in the left side of the face. She does still have the right posterior headache. She has had no fever, chills, cough, etc. PHYSICAL EXAMINATION: Color is good. Chest is clear. Cardiac exam is normal. Abdomen is soft, nontender. She is neurologically intact. IMPRESSION: Right posterior headache with left cheek dysesthesias and diplopia. PLAN: Continue workup. She is to be seen by Neurology and she will undergo carotid duplex imaging. MMODL / IJN: [id number] /
[2020-06-29] MEDS ORDERED: ATORVASTATIN 40 MG TAB PO SCH (21:00)
[2020-06-30] MEDS: SYMBICORT 160-4.5 MCG INHALER INHALATION SCH (07:39)
[2020-06-30 07:58] VITALS: RESP 16; TEMP 98
[2020-06-30] MEDS: FENOFIBRATE 54 MG TAB PO SCH (08:48)
[2020-06-30] MEDS ORDERED: CLOPIDOGREL 75 MG TAB PO SCH (09:00)
[2020-06-30] MEDS ORDERED: RIVAROXABAN 20 MG TAB PO SCH (09:00)
[2020-06-30] MEDS ORDERED: lisinopriL 20 MG TAB PO SCH (09:00)
[2020-06-30] MEDS ORDERED: SPIRONOLACTONE 25 MG TAB PO SCH (09:00)
[2020-06-30] MEDS ORDERED: METOPROLOL TARTRATE 50 MG TAB PO SCH (09:00)
[2020-06-30 10:05] LABS: African American GFR (CKD) >90 (>60 ml/min/1.73 sqM); Anion Gap 7 mmol/L; Blood Urea Nitrogen 10 mg/dL (7-17); Calcium 8.8 mg/dL (8.4-10.2); Carbon Dioxide 27 mmol/L (22-30); Chloride 103 mmol/L (98-107); Glucose 279 mg/dL (74-99); Non-African American GFR(CKD) >90 (>60 ml/min/1.73 sqM); Potassium 4.5 mmol/L (3.5-5.1); Sodium 137 mmol/L (137-145)
--- NOTE | 2020-06-30 10:09 | P.GSCN ---
History of Present Illness History of present illness: [id number] female with multiple medical problem. Patient came with bilateral blurry vision and left facial numbness that lasted a few seconds dated 06/28/2020. Patient recovered completely patient has history of atrial fibrillation myocardial infarction, hypertension, and patient is on [place]. Generated complete stroke workup. Including carotid ultrasound which was within normal limit a CTA of the carotid which shows there is slight cylindrical prominence 7.3 mm measurement changes to the supraglenoid segment left internal carotid artery near site of tortuosity. Neck examination neck is supple no bruit appreciated Chest is clear good entry both lungs Abdomen soft nontender Femorals plus bilateral plan is continue with medical management discuss with neurology there is concern is 1.3 mm and her was changes to the supraglenoid segment left internal carotid artery near the site of tortuosity. Patient needs to be related by intervention needed neurologist or neurosurgeon that can be arranged as an outpatient Past Medical History Past Medical History: Coronary Artery Disease (CAD), Chest Pain / Angina, COPD, Hyperlipidemia, Hypertension, Myocardial Infarction ([place]), Osteoarthritis ([place]), Sleep Apnea/CPAP/BIPAP, Vascular Disorder Additional Past Medical History / Comment(s): PVD, neuropathy L leg, carpal tunnel syndrome bilateral wrists, numbness/tingling bilateral hands, goiter, scolosis Last Myocardial Infarction Date:: 2006 History of Any Multi-Drug Resistant Organisms: None Reported Past Surgical History: Section, Cholecystectomy, Coronary Bypass/CABG, Heart Catheterization With Stent, Pacemaker Additional Past Surgical History / Comment(s): triple bypass 2006. Pt has a "Visia AF MRI VR Surescan Defibrillator" implanted 11/05/17. Serial # [id number], Model #[id number]". Serial # [id number], Model # [id number]. laser eye surgery mar and apr 2020 Past Anesthesia/Blood Transfusion Reactions: Family History of Problems w/ Anesthesia Additional Past Anesthesia/Blood Transfusion Reaction / Comm: Sister had some kind of "allergic reaction" to anesthesia Date of Last Stent Placement:: 03/2015 Type of Cardiac Device: Permanent Pacemaker Device Placement Date:: 11/05/17 Past Psychological History: No Psychological Hx Reported Additional Psychological History / Comment(s): Pt lives at home with and 1 adult son. Pt is independent. Pt is on disability. She drives a car. Uses a walker or can at home. Smoking Status: Current some day smoker Past Alcohol Use History: None Reported Additional Past Alcohol Use History / Comment(s): Pt states she started smoking in 1972 and had been a on and off smoker since. Past Drug Use History: None Reported - Past Family History Father Family Medical History: Coronary Artery Disease (CAD), Diabetes Mellitus, Myocardial Infarction ([place]) Additional Family Medical History / Comment(s): Father at age 50 of massive [place]. Father was an alcoholic. He was bipolar Mother Additional Family Medical History / Comment(s): Mother has scoliosis. She is 83 yrs old. Sister(s) Family Medical History: Congestive Heart Failure (CHF), Diabetes Mellitus Medications and Allergies Home Medications Medication Instructions Recorded Confirmed Type Atorvastatin Calcium [Lipitor] 40 mg PO HS #30 tab 03/29/15 06/29/20 Rx Clopidogrel [Plavix] 75 mg PO DAILY #30 tab 03/29/15 06/29/20 Rx lisinopriL [Prinivil] 20 mg PO DAILY #30 tablet 03/29/15 06/29/20 Rx Ibuprofen [Motrin] 800 mg PO Q6H PRN 10/14/17 06/29/20 History Metoprolol Tartrate [Lopressor] 50 mg PO DAILY 10/14/17 06/29/20 History Spironolactone 50 mg PO DAILY 05/10/18 06/29/20 History Fluticasone/Salmeterol [Advair Hfa 1 puff INHALATION RT-BID 06/29/20 06/29/20 History 115-21 Mcg Inhaler] Rivaroxaban [Xarelto] 20 mg PO DAILY 06/29/20 06/29/20 History Allergies Allergy/AdvReac Type Severity Reaction Status Date / Time cephalexin monohydrate AdvReac Nausea & Verified 06/29/20 06:27 [From Keflex] Vomiting & Diarrhea prednisone AdvReac Nausea & Verified 06/29/20 06:27 Vomiting & Diarrhea Surgical - Exam Vital Signs Temp Pulse Resp BP Pulse Ox 98.4 F 81 18 120/74 97 06/28/20 17:41 06/28/20 17:41 06/28/20 17:41 06/28/20 17:41 06/28/20 17:41 Results - Labs 06/28/20 18:02 06/28/20 18:02 Thyroid panel 06/28/20 Range/Units 18:02 TSH 1.220 (0.350-5.500) uIU/mL Pituitary panel 06/28/20 Range/Units 18:02 TSH 1.220 (0.350-5.500) uIU/mL
[2020-06-30] MEDS: SODIUM CHLORIDE 0.9% 1,000 ML IV SCH (10:11)
[2020-06-30] MEDS: CLOPIDOGREL 75 MG TAB PO SCH (11:56)
[2020-06-30] MEDS: ASPIRIN 325 MG TAB PO SCH (11:56)
[2020-06-30 11:58] VITALS: BP 125/67; PULSE 77
--- NOTE | 2020-06-30 16:17 | DS ---
DISCHARGE SUMMARY CHIEF COMPLAINT: Headache with visual changes and numbness in the left cheek. HISTORY OF PRESENT ILLNESS AND PHYSICAL EXAMINATION: Details of this lady's history and physical can be found in the initial workup. LABORATORY STUDIES: While she was in a hospital she had laboratory studies, details of which can be found in the laboratory section of her chart. COURSE IN THE HOSPITAL: After admission she was placed on bedrest, started on intravenous fluids and she had frequent monitoring of her neurologic status and vital signs. All of her symptoms cleared except for her slight headache. She was seen by Neurology. Numerous studies were done which were unremarkable including carotid duplex imaging, CT angiogram of the neck and head, echocardiogram, and others. She remained asymptomatic. It was felt that she could go home on the . She will go home on her usual activity and diet and she will continue on Xarelto and Plavix and 81 mg of aspirin will be added a day. She will be seen in the office in several days. FINAL DIAGNOSIS: 1. Possible transient ischemic attack. 2. History of coronary artery disease. 3. Status post coronary artery bypass grafting. 4. Hypertension. 5. Chronic obstructive pulmonary disease. OPERATIONS: None. CONSULTATIONS: Neurology. She is improved. MMODL / IJN: [id number] /
== END 2020-06-30 13:20 | disposition home or self-care (01) ==
LOC: EC 17:37 → 6NMEDSUR 20:00
PROVIDERS: ADMIT Family Medicine; ATTEND Family Medicine
DX: H53.8 Other visual disturbances (principal); R20.2 Paresthesia of skin; R51.9 Headache, unspecified; H53.2 Diplopia; M25.512 Pain in left shoulder; I25.10 Atherosclerotic heart disease of native coronary artery without angina pectoris; I73.9 Peripheral vascular disease, unspecified; E78.1 Pure hyperglyceridemia; D72.829 Elevated white blood cell count, unspecified; E03.9 Hypothyroidism, unspecified; E78.5 Hyperlipidemia, unspecified; G47.30 Sleep apnea, unspecified; I10 Essential (primary) hypertension; I48.91 Unspecified atrial fibrillation; I49.1 Atrial premature depolarization; J44.9 Chronic obstructive pulmonary disease, unspecified; R20.1 Hypoesthesia of skin; E87.5 Hyperkalemia; M19.90 Unspecified osteoarthritis, unspecified site; G56.03 Carpal tunnel syndrome, bilateral upper limbs; R74.8 Abnormal levels of other serum enzymes; Z20.828 Contact with and (suspected) exposure to other viral communicable diseases; F17.210 Nicotine dependence, cigarettes, uncomplicated; Z79.82 Long term (current) use of aspirin; Z79.01 Long term (current) use of anticoagulants; Z79.51 Long term (current) use of inhaled steroids; Z79.899 Other long term (current) drug therapy; Z79.02 Long term (current) use of antithrombotics/antiplatelets; Z88.1 Allergy status to other antibiotic agents; Z88.8 Allergy status to other drugs, medicaments and biological substances; Z95.5 Presence of coronary angioplasty implant and graft; I25.2 Old myocardial infarction; Z98.891 History of uterine scar from previous surgery; Z95.810 Presence of automatic (implantable) cardiac defibrillator; Z90.49 Acquired absence of other specified parts of digestive tract; Z82.69 Family history of other diseases of the musculoskeletal system and connective tissue; Z99.89 Dependence on other enabling machines and devices; Z95.1 Presence of aortocoronary bypass graft; Z81.1 Family history of alcohol abuse and dependence; Z82.49 Family history of ischemic heart disease and other diseases of the circulatory system; Z83.3 Family history of diabetes mellitus; Z81.8 Family history of other mental and behavioral disorders
CPT/HCPCS: 96360; 96361 ×2; 99285; 36415; 94640 ×2; 93005; 97161; 97165; 80061; 80053; 80048; 84443; 84484; 85025; 85610; 85730; 87635; 71046; 93880; 70496; 70450; 70498; G0378 ×3; C8929; Q9950; Q9967; 93306

== ENCOUNTER → 2020-07-09 | Outpatient (CLI) | payer MEDICARE, OTHER ==
[2020-07-09 14:29] VITALS: BP 132/84; PULSE 108; RESP 18; TEMP 98.3; BMI 50.1
--- NOTE | 2020-07-23 11:23 | P.HPBAR ---
Bariatric H&P - History & Physicial H&P Date: 07/09/20 History & Physicial: Visit/CC: follow up / SWL #2 Patient initial contact: Initial weight: Initial weight in pounds: Height: 5 ft 4 in Initial BMI: Last weight: Current weight: 132.449 kg Current weight in pounds: 292.00 Current BMI: 50.1 [place] body weight (based on NIH guidelines): 54.431 kg Excess body weight loss: The patient is a 60 year-old F who presents for Bariatric Assessment. Patient presents today for presurgical consultation. He is morbidly obese. His BMI is 50. He is presenting today for supervised weight loss visit. Past Medical History Past Medical History: Coronary Artery Disease (CAD), Chest Pain / Angina, COPD, CVA/TIA, Hyperlipidemia, Hypertension, Myocardial Infarction (LA), Osteoarthritis (OA), Sleep Apnea/CPAP/BIPAP, Vascular Disorder Additional Past Medical History / Comment(s): PVD, neuropathy L leg, carpal tunnel syndrome bilateral wrists, numbness/tingling bilateral hands, goiter, scolosis; mini stroke 06/28/2020 Last Myocardial Infarction Date:: 2006 History of Any Multi-Drug Resistant Organisms: None Reported Past Surgical History: Section, Cholecystectomy, Coronary Bypass/CABG, Heart Catheterization With Stent, Pacemaker Additional Past Surgical History / Comment(s): triple bypass 2006. Pt has a "[employer]ia AF MRI VR Surescan Defibrillator" implanted 11/05/17. Serial # [id number], Model #[id number]". Serial # [id number], Model # [id number]. laser eye surgery mar and apr 2020 Past Anesthesia/Blood Transfusion Reactions: Family History of Problems w/ Anesthesia Additional Past Anesthesia/Blood Transfusion Reaction / Comm: Sister had some kind of "allergic reaction" to anesthesia Date of Last Stent Placement:: 03/2015 Type of Cardiac Device: Permanent Pacemaker Device Placement Date:: 11/05/17 Past Psychological History: No Psychological Hx Reported Additional Psychological History / Comment(s): Pt lives at home with and 1 adult son. Pt is independent. Pt is on disability. She drives a car. Uses a walker or can at home. Smoking Status: Current some day smoker Past Alcohol Use History: None Reported Additional Past Alcohol Use History / Comment(s): Pt states she started smoking in 1972 and had been a on and off smoker since. Past Drug Use History: None Reported - Past Family History Father Family Medical History: Coronary Artery Disease (CAD), Diabetes Mellitus, Myocardial Infarction ([place]) Additional Family Medical History / Comment(s): Father at age 50 of massive [place]. Father was an alcoholic. He was bipolar Mother Additional Family Medical History / Comment(s): Mother has scoliosis. She is 83 yrs old. Sister(s) Family Medical History: Congestive Heart Failure (CHF), Diabetes Mellitus Surgical - Exam Vital Signs Temp Pulse Resp BP 98.3 F 108 H 18 132/84 07/09/20 14:23 07/09/20 14:23 07/09/20 14:23 07/09/20 14:23 - General well developed, well nourished, no distress - Eyes PERRL - ENT normal pinna - Neck no masses - Respiratory normal expansion - Cardiovascular Rhythm: regular - Abdomen Abdomen: soft, non tender Bariatric Assessment & Plan Plan: Morbid obesity, BMI 50. Patient has an excellent understanding sleeve yesterday. She will follow-up in 4 weeks. Bariatric Checklist Checklist: Plan: Checklist: EGD: 1. Hiatal hernia: 2. H. Pylori: HgbA1c: Vitamin D: Smoking: Current every day smoker Primary care physician referral: dr cotter Psychiatry clearance: Cardiology clearance: Sleep study: Diet journal: VTE risk score: VTE risk level: Rehab needs at discharge:
== END | disposition home or self-care (01) ==
LOC: BARWHC3 13:49
PROVIDERS: ATTEND Surgery
DX: E66.01 Morbid (severe) obesity due to excess calories (principal); Z68.43 Body mass index [BMI] 50.0-59.9, adult; Z90.49 Acquired absence of other specified parts of digestive tract
CPT/HCPCS: 99211

== ENCOUNTER → 2020-08-06 | Outpatient (CLI) | payer MEDICARE, OTHER ==
[2020-08-06 15:19] VITALS: BP 136/84; PULSE 92; RESP 18; TEMP 98.2; BMI 51.2
--- NOTE | 2020-08-13 15:28 | P.HPBAR ---
Bariatric H&P - History & Physicial H&P Date: 08/06/20 History & Physicial: Visit/CC: follow up / SWL Visit Patient initial contact: Initial weight: Initial weight in pounds: Height: 5 ft 4 in Initial BMI: Last weight: Current weight: 135.624 kg Current weight in pounds: 299.00 Current BMI: 51.2 [place] body weight (based on NIH guidelines): 54.431 kg Excess body weight loss: The patient is a 60 year-old F who presents for Bariatric Assessment. Patient presents today for supervised weight loss visit. This is her third visit. Her weight is 200 and in pounds. Past Medical History Past Medical History: Coronary Artery Disease (CAD), Chest Pain / Angina, COPD, CVA/TIA, Hyperlipidemia, Hypertension, Myocardial Infarction ([place]), Osteoarthritis (OA), Sleep Apnea/CPAP/BIPAP, Vascular Disorder Additional Past Medical History / Comment(s): PVD, neuropathy L leg, carpal tunnel syndrome bilateral wrists, numbness/tingling bilateral hands, goiter, scolosis; mini stroke 06/28/2020 Last Myocardial Infarction Date:: 2006 History of Any Multi-Drug Resistant Organisms: None Reported Past Surgical History: Section, Cholecystectomy, Coronary Bypass/CABG, Heart Catheterization With Stent, Pacemaker Additional Past Surgical History / Comment(s): triple bypass 2006. Pt has a "Visia AF MRI VR Surescan Defibrillator" implanted 11/05/17. Serial # [id number], Model #[id number]". Serial # [id number], Model # [id number]. laser eye surgery mar and apr 2020 Past Anesthesia/Blood Transfusion Reactions: Family History of Problems w/ Anesthesia Additional Past Anesthesia/Blood Transfusion Reaction / Comm: Sister had some kind of "allergic reaction" to anesthesia Date of Last Stent Placement:: 03/2015 Type of Cardiac Device: Permanent Pacemaker Device Placement Date:: 11/05/17 Past Psychological History: No Psychological Hx Reported Additional Psychological History / Comment(s): Pt lives at home with and 1 adult son. Pt is independent. Pt is on disability. She drives a car. Uses a walker or can at home. Smoking Status: Current some day smoker Past Alcohol Use History: None Reported Additional Past Alcohol Use History / Comment(s): Pt states she started smoking in 1972 and had been a on and off smoker since. Past Drug Use History: None Reported - Past Family History Father Family Medical History: Coronary Artery Disease (CAD), Diabetes Mellitus, Myocardial Infarction ([place]) Additional Family Medical History / Comment(s): Father at age 50 of massive [place]. Father was an alcoholic. He was bipolar Mother Additional Family Medical History / Comment(s): Mother has scoliosis. She is 83 yrs old. Sister(s) Family Medical History: Congestive Heart Failure (CHF), Diabetes Mellitus Surgical - Exam Vital Signs Temp Pulse Resp BP 98.2 F 92 18 136/84 08/06/20 15:12 08/06/20 15:12 08/06/20 15:12 08/06/20 15:12 - General well developed, well nourished, no distress - Eyes PERRL - ENT normal pinna - Neck no masses - Respiratory normal expansion - Cardiovascular Rhythm: regular - Abdomen Abdomen: soft, non tender Bariatric Assessment & Plan Plan: Morbid obesity, BMI 51. Patient follow-up in one month. She has complaints related to morbid obesity. Bariatric Checklist Checklist: Plan: Checklist: EGD: 1. Hiatal hernia: 2. H. Pylori: HgbA1c: Vitamin D: Smoking: Current every day smoker Primary care physician referral: Dr. Dejesus Psychiatry clearance: Cardiology clearance: Sleep study: Diet journal: VTE risk score: VTE risk level: Rehab needs at discharge:
== END ==
LOC: BARWHC3 13:55
PROVIDERS: ATTEND Surgery
DX: E66.01 Morbid (severe) obesity due to excess calories (principal); Z68.43 Body mass index [BMI] 50.0-59.9, adult; I25.10 Atherosclerotic heart disease of native coronary artery without angina pectoris; J44.9 Chronic obstructive pulmonary disease, unspecified; I10 Essential (primary) hypertension; I25.2 Old myocardial infarction; M19.90 Unspecified osteoarthritis, unspecified site; E78.5 Hyperlipidemia, unspecified; Z46.51 Encounter for fitting and adjustment of gastric lap band; F17.210 Nicotine dependence, cigarettes, uncomplicated
CPT/HCPCS: 99211

== ENCOUNTER 2020-11-11 18:29 | Observation (INO) | payer MEDICARE, OTHER ==
[2020-11-11] MEDS ORDERED: NITROGLYCERIN OINT 1 INCH/GM PACKET TOPICAL STA (18:54)
[2020-11-11] MEDS ORDERED: ASPIRIN 81 MG PO STA (18:54)
--- NOTE | 2020-11-11 18:59 | ED ---
General Adult HPI - General Chief complaint: Chest Pain Stated complaint: chest pain Time Seen by Provider: 11/11/20 18:39 Source: patient, RN notes reviewed Mode of arrival: wheelchair Limitations: no limitations - History of Present Illness Initial comments: Patient is a pleasant 60-year-old female presenting to the emergency Department with complaints of chest discomfort. Onset of symptoms was around 1:00. Patient has pressure indigestion in her chest without radiation. Questionable mild dyspnea. No nausea. No diaphoresis. Discomfort was more severe earlier. Discomfort has improved is currently rated 5/10. No history of similar symptoms previously. - Related Data Home Medications Medication Instructions Recorded Confirmed Metoprolol Tartrate [Lopressor] 50 mg PO DAILY 10/14/17 11/11/20 Spironolactone 50 mg PO DAILY 05/10/18 11/11/20 Rivaroxaban [Xarelto] 20 mg PO DAILY 06/29/20 11/11/20 Budesonide/Formoterol Fumarate 2 puff INHALATION RT-BID 11/11/20 11/11/20 [Symbicort 160-4.5 Mcg Inhaler] Previous Rx's Medication Instructions Recorded Atorvastatin Calcium [Lipitor] 40 mg PO HS #30 tab 03/29/15 Clopidogrel [Plavix] 75 mg PO DAILY #30 tab 03/29/15 lisinopriL [Prinivil] 20 mg PO DAILY #30 tablet 03/29/15 Allergies Allergy/AdvReac Type Severity Reaction Status Date / Time cephalexin monohydrate AdvReac Nausea & Verified 11/11/20 19:44 [From Keflex] Vomiting & Diarrhea prednisone AdvReac Nausea & Verified 11/11/20 19:44 Vomiting & Diarrhea Review of Systems ROS Statement: Those systems with pertinent positive or pertinent negative responses have been documented in the HPI. ROS Other: All systems not noted in ROS Statement are negative. Constitutional: Denies: fever Eyes: Denies: eye pain ENT: Denies: ear pain Respiratory: Denies: cough Cardiovascular: Reports: as per HPI, chest pain Endocrine: Denies: fatigue Gastrointestinal: Denies: abdominal pain Genitourinary: Denies: dysuria Musculoskeletal: Denies: back pain Skin: Denies: rash Neurological: Denies: weakness Past Medical History Past Medical History: Coronary Artery Disease (CAD), Chest Pain / Angina, COPD, CVA/TIA, Hyperlipidemia, Hypertension, Myocardial Infarction ([place]), Osteoarthritis (OA), Sleep Apnea/CPAP/BIPAP, Vascular Disorder Additional Past Medical History / Comment(s): PVD, neuropathy L leg, carpal tunnel syndrome bilateral wrists, numbness/tingling bilateral hands, goiter, scolosis; mini stroke 06/28/2020 Last Myocardial Infarction Date:: 2006 History of Any Multi-Drug Resistant Organisms: None Reported Past Surgical History: Section, Cholecystectomy, Coronary Bypass/CABG, Heart Catheterization With Stent, Pacemaker Additional Past Surgical History / Comment(s): triple bypass 2006. Pt has a "Visia AF MRI VR Surescan Defibrillator" implanted 11/05/17. Serial # [id number], Model #[id number]". Serial # [id number], Model # [id number]. laser eye surgery mar and apr 2020 Past Anesthesia/Blood Transfusion Reactions: Family History of Problems w/ An esthesia Additional Past Anesthesia/Blood Transfusion Reaction / Comment(s): Sister had some kind of "allergic reaction" to anesthesia Date of Last Stent Placement:: 03/2015 Type of Cardiac Device: Permanent Pacemaker Device Placement Date:: 11/05/17 Past Psychological History: No Psychological Hx Reported Smoking Status: Current some day smoker Past Alcohol Use History: None Reported Past Drug Use History: None Reported - Past Family History Father Family Medical History: Coronary Artery Disease (CAD), Diabetes Mellitus, Myocardial Infarction ([place]) Additional Family Medical History / Comment(s): Father at age 50 of massive [place]. Father was an alcoholic. He was bipolar Mother Additional Family Medical History / Comment(s): Mother has scoliosis. She is 83 yrs old. Sister(s) Family Medical History: Congestive Heart Failure (CHF), Diabetes Mellitus General Exam Limitations: no limitations General appearance: alert, in no apparent distress Head exam: Present: normocephalic Eye exam: Present: normal appearance Neck exam: Present: normal inspection Respiratory exam: Present: normal lung sounds bilaterally. Absent: chest wall tenderness Cardiovascular Exam: Present: regular rate, normal rhythm Expanded Peripheral pulses: 2+: Radial (R), Radial (L), Posterior Tibialis (R), Posterior Tibialis (L) GI/Abdominal exam: Present: soft. Absent: tenderness Extremities exam: Present: normal inspection. Absent: calf tenderness Neurological exam: Present: alert Psychiatric exam: Present: normal affect, normal mood Skin exam: Present: normal color Course Vital Signs 11/11/20 11/11/20 18:35 20:39 Temperature 98.2 F Pulse Rate 70 91 Respiratory 16 18 Rate Blood Pressure 130/71 146/81 O2 Sat by Pulse 95 97 Oximetry - Reevaluation(s) Reevaluation #1: 11/11/20 18:56 I did have some concern for borderline inferior ST changes however I did review previous EKG from June 282020 with similar findings. Repeat EKG at 1851 shows normal sinus rhythm at 86. HI 172. QRS 80. QT 366. QTc 437. Normal axis. Borderline inferior ST changes. T-wave inversion aVL. Low QRS voltage. EKG Findings - EKG Comments: EKG Findings:: Sinus tachycardia with rate of 107. HI 198. QRS 78. QT 314. QTC 419. Normal axis. Low QRS voltage. Borderline inferior ST change. Q wave inversion in aVL. Low QRS voltage. Medical Decision Making - Medical Decision Making Patient reevaluated and feeling better, resting at bedside. Patient and family updated on results and plan. Dr. Dejesus has been paged for admission of his patient. Case was discussed with Dr. Dejesus who will admit his patient with cardiology consult. - Lab Data Result diagrams: 11/11/20 18:54 11/11/20 18:54 Lab Results 11/11/20 11/11/20 11/11/20 Range/Units 18:54 18:54 18:54 WBC 9.7 (3.8-10.6) k/uL RBC 5.00 (3.80-5.40) m/uL Hgb 14.6 (11.4-16.0) gm/dL Hct 43.9 (34.0-46.0) % MCV 87.8 (80.0-100.0) fL MCH 29.2 (25.0-35.0) pg MCHC 33.3 (31.0-37.0) g/dL RDW 14.3 (11.5-15.5) % Plt Count 142 L (150-450) k/uL MPV 9.3 Neutrophils % 84 % Lymphocytes % 8 % Monocytes % 5 % Eosinophils % 2 % Basophils % 1 % Neutrophils # 8.1 H (1.3-7.7) k/uL Lymphocytes # 0.8 L (1.0-4.8) k/uL Monocytes # 0.5 (0-1.0) k/uL Eosinophils # 0.2 (0-0.7) k/uL Basophils # 0.1 (0-0.2) k/uL PT 11.8 (9.0-12.0) sec INR 1.1 (<1.2) APTT 29.3 (22.0-30.0) sec D-Dimer 0.31 (<0.60) mg/L FEU Sodium 136 L (137-145) mmol/L Potassium 4.7 (3.5-5.1) mmol/L Chloride 103 (98-107) mmol/L Carbon Dioxide 27 (22-30) mmol/L Anion Gap 6 mmol/L BUN 13 (7-17) mg/dL Creatinine 0.55 (0.52-1.04) mg/dL Est GFR (CKD-EPI)AfAm >90 (>60 ml/min/1.73 sqM) Est GFR (CKD-EPI)NonAf >90 (>60 ml/min/1.73 sqM) Glucose 119 H (74-99) mg/dL Calcium 9.4 (8.4-10.2) mg/dL Magnesium 1.7 (1.6-2.3) mg/dL Total Bilirubin 0.6 (0.2-1.3) mg/dL AST 53 H (14-36) U/L ALT 25 (4-34) U/L Alkaline Phosphatase 125 (38-126) U/L Troponin I (0.000-0.034) ng/mL NT-Pro-B Natriuret Pep pg/mL Total Protein 7.1 (6.3-8.2) g/dL Albumin 4.1 (3.5-5.0) g/dL 11/11/20 11/11/20 Range/Units 18:54 18:54 WBC (3.8-10.6) k/uL RBC (3.80-5.40) m/uL Hgb (11.4-16.0) gm/dL Hct (34.0-46.0) % MCV (80.0-100.0) fL MCH (25.0-35.0) pg MCHC (31.0-37.0) g/dL RDW (11.5-15.5) % Plt Count (150-450) k/uL MPV Neutrophils % % Lymphocytes % % Monocytes % % Eosinophils % % Basophils % % Neutrophils # (1.3-7.7) k/uL Lymphocytes # (1.0-4.8) k/uL Monocytes # (0-1.0) k/uL Eosinophils # (0-0.7) k/uL Basophils # (0-0.2) k/uL PT (9.0-12.0) sec INR (<1.2) APTT (22.0-30.0) sec D-Dimer (<0.60) mg/L FEU Sodium (137-145) mmol/L Potassium (3.5-5.1) mmol/L Chloride (98-107) mmol/L Carbon Dioxide (22-30) mmol/L Anion Gap mmol/L BUN (7-17) mg/dL Creatinine (0.52-1.04) mg/dL Est GFR (CKD-EPI)AfAm (>60 ml/min/1.73 sqM) Est GFR (CKD-EPI)NonAf (>60 ml/min/1.73 sqM) Glucose (74-99) mg/dL Calcium (8.4-10.2) mg/dL Magnesium (1.6-2.3) mg/dL Total Bilirubin (0.2-1.3) mg/dL AST (14-36) U/L ALT (4-34) U/L Alkaline Phosphatase (38-126) U/L Troponin I <0.012 (0.000-0.034) ng/mL NT-Pro-B Natriuret Pep 167 pg/mL Total Protein (6.3-8.2) g/dL Albumin (3.5-5.0) g/dL - Radiology Data Radiology results: image reviewed (Chest x-ray does show mild cardiomegaly. The basilar atelectasis or infiltrate. Some background interstitial edema) Disposition Clinical Impression: Chest pain Disposition: ADMITTED IP TO THIS [facility] Is patient prescribed a controlled substance at d/c from ED?: No Referrals: Fredi Dejesus MD [Primary Care Provider] - 1-2 days Decision Time: 20:53
[2020-11-11 19:11] LABS: Basophils # (A) 0.1 k/uL (0-0.2); Basophils % (A) 1 %; Eosinophils # (A) 0.2 k/uL (0-0.7); Eosinophils % (A) 2 %; HCT 43.9 % (34.0-46.0); HGB 14.6 gm/dL (11.4-16.0); Lymphocytes # (A) 0.8 k/uL (1.0-4.8); Lymphocytes % (A) 8 %; MCH 29.2 pg (25.0-35.0); MCHC 33.3 g/dL (31.0-37.0); MCV 87.8 fL (80.0-100.0); Mean Platelet Volume 9.3; Monocytes # (A) 0.5 k/uL (0-1.0); Monocytes % (A) 5 %; Neutrophils # (A) 8.1 k/uL (1.3-7.7); Neutrophils % (A) 84 %; Platelet Count 142 k/uL (150-450); RDW 14.3 % (11.5-15.5); WBC 9.7 k/uL (3.8-10.6)
[2020-11-11 19:24] LABS: ALT 25 U/L (4-34); AST 53 U/L (14-36); African American GFR (CKD) >90 (>60 ml/min/1.73 sqM); Albumin 4.1 g/dL (3.5-5.0); Alkaline Phosphatase 125 U/L (38-126); Anion Gap 6 mmol/L; Blood Urea Nitrogen 13 mg/dL (7-17); Calcium 9.4 mg/dL (8.4-10.2); Carbon Dioxide 27 mmol/L (22-30); Chloride 103 mmol/L (98-107); Glucose 119 mg/dL (74-99); Magnesium 1.7 mg/dL (1.6-2.3); Non-African American GFR(CKD) >90 (>60 ml/min/1.73 sqM); Sodium 136 mmol/L (137-145); Total Bilirubin 0.6 mg/dL (0.2-1.3); Total Protein 7.1 g/dL (6.3-8.2)
--- NOTE | 2020-11-11 19:27 | XR ---
EXAMINATION TYPE: XR chest 2V DATE OF EXAM: 11/11/2020 COMPARISON: 06/28/2020 HISTORY: Chest pain and productive cough. TECHNIQUE: Frontal and lateral views of the chest are obtained. FINDINGS: There are moderate left and mild right bibasilar opacities. No significant pleural effusio n, or pneumothorax seen. There is background of mild interstitial edema. The cardiac silhouette size is enlarged. CABG in the left AICD seen. The osseous structures are intact. IMPRESSION: Bibasilar opacities may represent atelectasis or infiltrates. Background of interstitial edema.
[2020-11-11 19:48] LABS: Potassium 4.7 mmol/L (3.5-5.1)
[2020-11-11 19:49] LABS: D-Dimer 0.31 mg/L FEU (<0.60); INR 1.1 (<1.2); Partial Thromboplastin Time 29.3 sec (22.0-30.0); Prothrombin Time 11.8 sec (9.0-12.0)
[2020-11-11] MEDS ORDERED: NITROGLYCERIN SL TABS 0.4 MG TAB SUBLINGUAL PRN (20:53)
[2020-11-11] MEDS: NITROGLYCERIN OINT 1 INCH/GM PACKET TOPICAL SCH (23:32)
[2020-11-12 02:36] VITALS: RESP 16
[2020-11-12] MEDS: NITROGLYCERIN OINT 1 INCH/GM PACKET TOPICAL SCH (05:44)
[2020-11-12 07:02] VITALS: BP 124/75; PULSE 93; TEMP 99.3
--- NOTE | 2020-11-12 08:24 | P.CRDCN ---
History of Present Illness History of present illness: HISTORY OF PRESENTING ILLNESS This is a pleasant 60-year-old female with history of his cardiomyopathy with somewhat improved ejection fraction 45-50%, coronary artery disease status post CABG in 2006 and PCI 2, TIA, AICD, COPD, prior tobacco abuse quit 2 years ago, hypertension, hyperlipidemia, obesity who presents secondary to episodes of shortness breath, cough, chest pressure. Patient admits she had been feeling well and then started feeling a cough, wheezing, short of breath. Her sons girlfriend was sick with upper respiratory symptoms over the last 3 days as well as to her grandkids however she states she is not in direct contact with them although they live in the house. She admits the chest pain is worse with deep inspiration and with cough and does not feel anything like her prior angina. He had blood work with white blood cell count 9.7, hemoglobin 14.6, platelets 142, d-dimer 0.31, sodium 136, creatinine 2.55, AST 53, PLT 25, troponin less than 0.0123, proBNP 167, coronavirus not detected. shows normal sinus rhythm, low voltage, Q waves in lead 3 with minimal upsloping ointment elevation in inferior leads, T-wave inversions in aVL and 1 similar to prior EKG from every 2020. Her last echo from June 2020 showed ejection fraction 45-50%, [id number] tricuspid regurgitation, RVSP of 43. Patient is unsure why she is on anticoagulation, is unsure if she has a history of atrial fibrillation. REVIEW OF SYSTEMS At the time of my exam: CONSTITUTIONAL: Denies fever or chills. CARDIOVASCULAR: +chest pain, +shortness of breath, no orthopnea, PND or palpitations. RESPIRATORY: +cough. GASTROINTESTINAL: Denies abdominal pain, diarrhea, constipation, nausea or vomiting. MUSCULOSKELETAL: Denies myalgias. NEUROLOGIC: Denies numbness, tingling or weakness. ENDOCRINE: Denies fatigue, weight change, polydipsia or polyurina. GENITOURINARY: Denies burning, hematuria or urgency with micturation. HEMATOLOGIC: Denies history of anemia or bleeding. PHYSICAL EXAMINATION Vital signs reviewed. CONSTITUTIONAL: No apparent distress, obese HEENT: Head is normocephalic. Pupils are equal, round. Sclerae anicteric. Mucous membranes of the mouth are moist. No JVD. No carotid bruit. CHEST EXAMINATION: Diffuse wheeze bilateral throughout HEART EXAMINATION: Regular rate and rhythm. S1, S2 heard. No murmurs, gallops or rub. ABDOMEN: Soft, nontender. Positive bowel sounds. EXTREMITIES: 2+ peripheral pulses, no lower extremity edema and no calf tenderness. NEUROLOGIC EXAMINATION: Patient is awake, alert and oriented x3. ASSESSMENT 1. Atypical chest pain related to COPD exacerbation, cough does not appear to typical of her prior angina. Troponins are normal 3 and no evidence of acute coronary syndrome. 2. Coronary artery disease status post CABG and PCI 2 3. History of TIA 4. History of cardiomyopathy with somewhat recovered ejection fraction 45-50% by last echo every 2020 5. Status post AICD 6. Hypertension 7. Hyperlipidemia 8. Cough, shortness breath consistent with COPD exacerbation with diffuse wheezing on exam 9. Prior tobacco abuse, quit 2 years ago PLAN Patient's main presentation is of cough, shortness breath, wheezing with recent exposure to sick contacts. Appears consistent with COPD exacerbation. She does have atypical chest pain which is worse with her cough and breathing which is not similar to her prior angina with bypass. Troponins normal 3 and EKG similar to prior. No evidence of acute coronary syndrome. Continue with home cardiac medications. No need to repeat echocardiogram with echo from every 2020 showing ejection fraction 45-50%. No further recommendations from cardiology standpoint. Patient to follow-up with Dr. Pugh in 1-2 weeks. Past Medical History Past Medical History: Coronary Artery Disease (CAD), Chest Pain / Angina, COPD, CVA/TIA, Hyperlipidemia, Hypertension, Myocardial Infarction (NH), Osteoarthritis (OA), Sleep Apnea/CPAP/BIPAP, Vascular Disorder Additional Past Medical History / Comment(s): PVD, neuropathy L leg, carpal tunnel syndrome bilateral wrists, numbness/tingling bilateral hands, goiter, scolosis; mini stroke 06/28/2020 Last Myocardial Infarction Date:: 2006 History of Any Multi-Drug Resistant Organisms: None Reported Past Surgical History: Section, Cholecystectomy, Coronary Bypass/CABG, Heart Catheterization With Stent, Pacemaker Additional Past Surgical History / Comment(s): triple bypass 2006. Pt has a "Visia AF MRI VR Surescan Defibrillator" implanted 11/05/17. Serial # [id number], Model #[id number] Serial # [id number], Model # [id number]. laser eye surgery mar and apr 2020 Past Anesthesia/Blood Transfusion Reactions: Family History of Problems w/ Anesthesia Additional Past Anesthesia/Blood Transfusion Reaction / Comment(s): Sister had some kind of "allergic reaction" to anesthesia Date of Last Stent Placement:: 03/2015 Type of Cardiac Device: Permanent Pacemaker Device Placement Date:: 11/05/17 Past Psychological History: No Psychological Hx Reported Additional Psychological History / Comment(s): Pt lives at home with and 1 adult son. Pt is independent. Pt is on disability. She drives a car. Uses a walker or can at home. Smoking Status: Former smoker Past Alcohol Use History: None Reported Additional Past Alcohol Use History / Comment(s): Pt states she started smoking in 1972 , quit 2 years ago Past Drug Use History: None Reported - Past Family History Father Family Medical History: Coronary Artery Disease (CAD), Diabetes Mellitus, Myocardial Infarction (NH) Additional Family Medical History / Comment(s): Father at age 50 of massive NH. Father was an alcoholic. He was bipolar Mother Additional Family Medical History / Comment(s): Mother has scoliosis. She is 83 yrs old. Sister(s) Family Medical History: Congestive Heart Failure (CHF), Diabetes Mellitus Medications and Allergies Home Medications Medication Instructions Recorded Confirmed Type Atorvastatin Calcium [Lipitor] 40 mg PO HS #30 tab 03/29/15 11/11/20 Rx Clopidogrel [Plavix] 75 mg PO DAILY #30 tab 03/29/15 11/11/20 Rx lisinopriL [Prinivil] 20 mg PO DAILY #30 tablet 03/29/15 11/11/20 Rx Metoprolol Tartrate [Lopressor] 50 mg PO DAILY 10/14/17 11/11/20 History Spironolactone 50 mg PO DAILY 05/10/18 11/11/20 History Rivaroxaban [Xarelto] 20 mg PO DAILY 06/29/20 11/11/20 History Budesonide/Formoterol Fumarate 2 puff INHALATION RT-BID 11/11/20 11/11/20 History [Symbicort 160-4.5 Mcg Inhaler] Allergies Allergy/AdvReac Type Severity Reaction Status Date / Time cephalexin monohydrate AdvReac Nausea & Verified 11/11/20 19:44 [From Keflex] Vomiting & Diarrhea prednisone AdvReac Nausea & Verified 11/11/20 19:44 Vomiting & Diarrhea Physical Exam Vitals: Vital Signs Temp Pulse Pulse Resp BP BP Pulse Ox 11/12/20 06:55 99.3 F 93 16 124/75 92 L 11/12/20 02:00 98.8 F 83 16 112/67 92 L 11/11/20 22:59 98.0 F 92 18 132/66 93 L 11/11/20 22:19 98.2 F 88 20 147/81 98 11/11/20 21:57 98.0 F 18 132/66 93 L 11/11/20 20:39 91 18 146/81 97 11/11/20 18:35 98.2 F 70 16 130/71 95 Intake and Output 11/11/20 11/12/20 11/12/20 22:59 06:59 14:59 Intake Total 300 Balance 300 Intake: Oral 300 Other: Voiding Method Toilet # Voids 1 2 Weight 132.903 kg Results 11/11/20 18:54 11/11/20 18:54 Cardiac Enzymes 11/11/20 11/11/20 11/11/20 Range/Units 18:54 18:54 22:32 AST 53 H (14-36) U/L Troponin I <0.012 <0.012 (0.000-0.034) ng/mL 11/12/20 Range/Units 01:59 AST (14-36) U/L Troponin I <0.012 (0.000-0.034) ng/mL Coagulation 11/11/20 Range/Units 18:54 PT 11.8 (9.0-12.0) sec APTT 29.3 (22.0-30.0) sec CBC 11/11/20 Range/Units 18:54 WBC 9.7 (3.8-10.6) k/uL RBC 5.00 (3.80-5.40) m/uL Hgb 14.6 (11.4-16.0) gm/dL Hct 43.9 (34.0-46.0) % Plt Count 142 L (150-450) k/uL Comprehensive Metabolic Panel 11/11/20 Range/Units 18:54 Sodium 136 L (137-145) mmol/L Potassium 4.7 (3.5-5.1) mmol/L Chloride 103 (98-107) mmol/L Carbon Dioxide 27 (22-30) mmol/L BUN 13 (7-17) mg/dL Creatinine 0.55 (0.52-1.04) mg/dL Glucose 119 H (74-99) mg/dL Calcium 9.4 (8.4-10.2) mg/dL AST 53 H (14-36) U/L ALT 25 (4-34) U/L Alkaline Phosphatase 125 (38-126) U/L Total Protein 7.1 (6.3-8.2) g/dL Albumin 4.1 (3.5-5.0) g/dL Current Medications Generic Name Dose Route Start Last Admin Trade Name Freq PRN Reason Stop Dose Admin Aspirin 325 mg 11/12/20 09:00 11/12/20 07:54 Aspirin 325 Mg Tab PO 325 mg DAILY ROBERTO Administration Atorvastatin Calcium 40 mg 11/12/20 21:00 Atorvastatin 40 Mg Tab PO HS ROBERTO Clopidogrel Bisulfate 75 mg 11/12/20 09:00 Clopidogrel 75 Mg Tab PO DAILY ROBERTO Nitroglycerin 0.4 mg 11/11/20 20:53 Nitroglycerin Sl Tabs 0.4 Mg Tab SUBLINGUAL Q5M PRN Chest Pain Nitroglycerin 1 inch 11/12/20 00:00 11/12/20 05:44 Nitroglycerin Oint 1 Inch/Gm Packet TOPICAL Not Given Q6HR ROBERTO Sodium Chloride 10 ml 11/11/20 21:00 11/12/20 07:55 Sodium Chloride 0.9% Flush 10 Ml Syringe IV 10 ml BID ROBERTO Administration Intake and Output 11/11/20 11/12/20 11/12/20 22:59 06:59 14:59 Intake Total 300 Balance 300 Intake: Oral 300 Other: Voiding Method Toilet # Voids 1 2 Weight 132.903 kg 11/11/20 18:54 11/11/20 18:54
[2020-11-12] MEDS ORDERED: METOPROLOL TARTRATE 50 MG TAB PO SCH (09:00)
[2020-11-12] MEDS ORDERED: CLOPIDOGREL 75 MG TAB PO SCH (09:00)
[2020-11-12] MEDS ORDERED: lisinopriL 20 MG TAB PO SCH (09:00)
[2020-11-12] MEDS ORDERED: ASPIRIN 325 MG TAB PO SCH (09:00)
[2020-11-12] MEDS ORDERED: RIVAROXABAN 20 MG TAB PO SCH (09:00)
[2020-11-12 09:54] LABS: Chol/HDL Ratio 4.2; LDL Cholesterol,Calculated 62.4 mg/dL (0.0-131.0); VLDL Calculation 33.6 mg/dL (5.00-40.00)
[2020-11-12] MEDS ORDERED: methylPREDNISolone 4 MG TAB PO ONE (11:00)
[2020-11-12] MEDS ORDERED: ATORVASTATIN 40 MG TAB PO SCH (21:00)
--- NOTE | 2020-11-12 21:02 | HP ---
HISTORY AND PHYSICAL CHIEF COMPLAINT: Chest pain. HISTORY OF PRESENT ILLNESS: This is another admission for this 60-year-old obese white female with advanced COPD. She has had a history of coronary artery disease. She was at home when she noticed a little bit of difficulty with shortness of breath associated with a cough and some wheezing. She felt a mild discomfort in the chest, but it did not sound or feel to her like angina. It was not pleuritic. She used her Symbicort in the chest and it cleared up as well as the discomfort, but she came to the emergency room where she was evaluated. The EKG and enzymes were normal. She was admitted for observation. She denies any radiation of discomfort, heaviness in the chest, aching in the jaw, etc. REVIEW OF SYSTEMS: Otherwise unremarkable. She had no change in vision or hearing, fever, chills, cough, hemoptysis, sputum production, abdominal pain, nausea, vomiting, diarrhea, melena, urinary complaints, etc. Past medical history, family history and personal and social histories reveal that she is ALLERGIC to KEFLEX and cannot take a FLU SHOT. She is on metoprolol 50 mg once a day, atorvastatin 40 mg once a day, lisinopril 20 mg a day, Xarelto 15 mg once a day, ibuprofen 800 mg q.i.d., spironolactone 50 mg once a day, vitamin D, updrafts, DuoNeb, Plavix 75 once a day, ProAir. The remainder of her history is unremarkable except for history of COPD and coronary artery disease. She used to smoke, but does not any longer. PHYSICAL EXAMINATION: Blood pressure is 118/70, pulse of 81, respirations of 18. She is afebrile. In general she appeared to be obese and slightly short of breath. Skin color is normal/ Skin is warm, dry. Lymph nodes are not enlarged. Head, ears, eyes, nose, mouth and throat were normal. Neck veins could not be assessed due to her obesity. The chest demonstrated decreased breath sounds with wheezes, rales and rhonchi throughout. Cardiac exam is normal sinus rhythm and no murmurs or extra sounds. Abdomen is protuberant, soft and nontender. Extremities are normal. Neurologically she is intact. She is admitted to the hospital diagnoses. 1. Atypical chest pain. 2. Chronic obstructive pulmonary disease. 3. Reactive airway disease. 4. Obesity. 5. History of coronary artery disease. PLAN: 1. Bedrest. 2. IV fluids. 3. Serial EKGs and enzymes. 4. Cardiology consult. CRISTIAN / CATRACHO: [id number] /
--- NOTE | 2020-11-12 23:36 | DS ---
DISCHARGE SUMMARY CHIEF COMPLAINT: Chest pain. HISTORY OF PRESENT ILLNESS AND PHYSICAL EXAMINATION: Details of this lady's history and physical can be found in the initial workup. LABORATORY STUDIES: While she was in the hospital, she had laboratory studies, details of which can be found in the laboratory section of her chart. COURSE IN THE HOSPITAL: After admission, she was placed on bedrest and started on intravenous fluids. She had serial EKGs and enzymes that were normal. She had no further difficulty while she was in the hospital. She was seen by Cardiology who felt that no further workup was necessary and that she could go home on her usual activity, diet and medication. She will go home on a Medrol Dosepak and she will be contacted in 1 day regarding followup in the office. FINAL DIAGNOSES: 1. Chest pain, noncardiac. 2. Chronic obstructive pulmonary disease. 3. Reactive airway disease. 4. History of coronary artery disease. 5. Chronic obstructive pulmonary disease. OPERATIONS: None. CONSULTATION: Cardiology. She is improved. MMODL / IJN: [id number] /
[2020-11-13] MEDS ORDERED: methylPREDNISolone 4 MG TAB TAPER PO SCH ×2 (09:00)
== END 2020-11-12 11:03 | disposition home or self-care (01) ==
LOC: EC 18:29 → 6NMEDSUR 20:53
PROVIDERS: ADMIT Family Medicine; ATTEND Family Medicine
DX: R07.89 Other chest pain (principal); J44.1 Chronic obstructive pulmonary disease with (acute) exacerbation; I25.10 Atherosclerotic heart disease of native coronary artery without angina pectoris; Z20.822 Contact with and (suspected) exposure to COVID-19; E66.9 Obesity, unspecified; I10 Essential (primary) hypertension; I42.9 Cardiomyopathy, unspecified; I25.2 Old myocardial infarction; E78.5 Hyperlipidemia, unspecified; F17.200 Nicotine dependence, unspecified, uncomplicated; I73.9 Peripheral vascular disease, unspecified; G57.92 Unspecified mononeuropathy of left lower limb; E04.9 Nontoxic goiter, unspecified; G47.30 Sleep apnea, unspecified; G56.03 Carpal tunnel syndrome, bilateral upper limbs; M19.90 Unspecified osteoarthritis, unspecified site; Z79.02 Long term (current) use of antithrombotics/antiplatelets; Z79.51 Long term (current) use of inhaled steroids; Z79.899 Other long term (current) drug therapy; Z79.01 Long term (current) use of anticoagulants; Z88.8 Allergy status to other drugs, medicaments and biological substances; Z88.1 Allergy status to other antibiotic agents; Z95.1 Presence of aortocoronary bypass graft; Z95.810 Presence of automatic (implantable) cardiac defibrillator; Z86.73 Personal history of transient ischemic attack (TIA), and cerebral infarction without residual deficits; Z90.49 Acquired absence of other specified parts of digestive tract; Z81.1 Family history of alcohol abuse and dependence; Z82.49 Family history of ischemic heart disease and other diseases of the circulatory system; Z83.3 Family history of diabetes mellitus; Z81.8 Family history of other mental and behavioral disorders; Z82.69 Family history of other diseases of the musculoskeletal system and connective tissue
CPT/HCPCS: 93005 ×2; 99285; 36415; 85379; 83880; 80061; 80053; 83735; 84484 ×2; 85025; 85610; 85730; 87635; 71046; G0378 ×2

== ENCOUNTER → 2021-05-03 | Outpatient (CLI) | payer MEDICARE, OTHER ==
--- NOTE | 2021-05-03 09:43 | CT ---
EXAMINATION TYPE: CT angio COW [place] DATE OF EXAM: 05/03/2021 COMPARISON: 06/29/2020 HISTORY: Cerebral aneurysm CT DLP: 2162.4 mGycm CONTRAST: CTA [place] with 3-D reconstruction is performed and without and with IV Contrast, patient i njected with 100 mL of Isovue 370. Contrast CTA of the [place] was performed 3-D reconstruction imaging obtained at a separate workstation. Vertebrobasilar system as well as intracranial portions of the internal carotid arterie s and their major tributaries are patent. I do not see evidence for sizable aneurysm or vascular mal formation. Please note MRI provides greater sensitivity and specificity. Visualized brain appears g rossly unremarkable. IMPRESSION: No evidence for sizable aneurysm or vascular malformation.
== END | disposition home or self-care (01) ==
LOC: RADCTMAIN 08:10
PROVIDERS: ATTEND Psychiatry & Neurology Neurology
DX: Z03.89 Encounter for observation for other suspected diseases and conditions ruled out (principal)
CPT/HCPCS: 70496; Q9967

== ENCOUNTER → 2024-08-09 | Outpatient (CLI) | payer MEDICARE, OTHER ==
--- NOTE | 2024-08-09 09:30 | MM ---
Reason for Exam: Screening (asymptomatic). Last mammogram was performed 2 year(s) and 10 month(s) ago. Patient History: Menarche at age 12. First Full-Term at age 19. Postmenopausal. Risk Values: Niyah 5 year model risk: 1.2%. NCI Lifetime model risk: 4.7%. Prior Study Comparison: 07/10/2016 Bilateral Screening Mammogram, [facility]. 08/19/2018 Bilateral Screening Mammogram, [facility]. 10/02/2021 Bilateral Screening Mammogram, Unknown. Tissue Density: There are scattered areas of fibroglandular density. Findings: Analyzed By CAD. Left axillary pacemaker device is redemonstrated. There are a few scattered benign-appearing round calcifications bilaterally redemonstrated. New group of indeterminate calcifications middle depth outer aspect right breast warrant further workup There is no suspicious new suspicious mass in either breast. Overall Assessment: Incomplete: need additional imaging evaluation, BI-RAD 0 Management: Diagnostic Mammogram of the right breast. Return for additional spot magnification and 3-D true lateral views right breast.. Patient should continue monthly self-breast exams. A clinical breast exam by your physician is recommended on an annual basis. This exam should not preclude additional follow-up of suspicious palpable abnormalities. Note on Niyah scores and lifetime risk: 1. A Niyah score greater than 3% is considered moderate risk. If this is the case, consider specialist referral to assess eligibility for a risk reducing agent. 2. If overall lifetime risk for the development of breast cancer is 20% or higher, the patient may qualify for future screening with alternating mammogram and breast MRI. [facility], , 08/09/2024 9:27 AM. Electronically signed and approved by: Christopher Gomes M.D.
[2024-08-09 15:39] LABS: ALT 17 U/L (8-44); AST 26 U/L (13-35); Chol/HDL Ratio 3.98 Ratio; LDL Cholesterol,Calculated 67.9 mg/dL (0.0-131.0)
== END | disposition home or self-care (01) ==
LOC: RADMAMWWP 03-01 08:45
PROVIDERS: ATTEND Family Medicine
DX: Z12.31 Encounter for screening mammogram for malignant neoplasm of breast (principal); R92.323 Mammographic fibroglandular density, bilateral breasts; E78.2 Mixed hyperlipidemia; Z78.0 Asymptomatic menopausal state
CPT/HCPCS: 77067; 80061; 84450; 84460

== ENCOUNTER → 2024-08-12 | Outpatient (CLI) | payer MEDICARE, OTHER ==
--- NOTE | 2024-08-12 09:14 | MM ---
Reason for Exam: Additional evaluation requested from abnormal screening. Last screening mammogram was performed less than 1 month ago. Patient History: Menarche at age 12. First Full-Term at age 19. Postmenopausal. Risk Values: Niyah 5 year model risk: 1.2%. NCI Lifetime model risk: 4.7%. Prior Study Comparison: 07/10/2016 Bilateral Screening Mammogram, [facility]. 08/19/2018 Bilateral Screening Mammogram, [facility]. 10/02/2021 Bilateral Screening Mammogram, Unknown. 08/09/2024 Bilateral MG screening mammo w CAD, [facility]. Tissue Density: Right: There are scattered areas of fibroglandular density. Findings: Analyzed By CAD. On additional views there is confirmation of grouped calcifications in the right breast measuring 4 mm in length middle outer aspect with amorphus morphology. Overall Assessment: Suspicious, BI-RAD 4 Management: Stereotactic Core Biopsy of the right breast. Tissue sampling is advised. Results were given to the patient verbally at the time of exam. Patient should continue monthly self-breast exams. A clinical breast exam by your physician is recommended on an annual basis. This exam should not preclude additional follow-up of suspicious palpable abnormalities. Note on Niyah scores and lifetime risk: 1. A Niyah score greater than 3% is considered moderate risk. If this is the case, consider specialist referral to assess eligibility for a risk reducing agent. 2. If overall lifetime risk for the development of breast cancer is 20% or higher, the patient may qualify for future screening with alternating mammogram and breast MRI. [facility], , 08/12/2024 9:11 AM. Electronically signed and approved by: Christopher Gomes M.D.
== END | disposition home or self-care (01) ==
LOC: RADMAMWWP 08:32
PROVIDERS: ATTEND Family Medicine
DX: R92.8 Other abnormal and inconclusive findings on diagnostic imaging of breast (principal); R92.321 Mammographic fibroglandular density, right breast; Z78.0 Asymptomatic menopausal state
CPT/HCPCS: 77061; 77065

== ENCOUNTER → 2024-08-22 | Day surgery (SDC) | payer MEDICARE, OTHER ==
[~2024-08-22] MED LIST: ALPRAZolam 0.25 MG TAB PO PRN
[2024-08-22] MEDS: ALPRAZolam 0.5 MG TAB PO PRN (10:18)
[2024-08-22 11:51] VITALS: BP 145/76; PULSE 92; RESP 14; TEMP 98.1
--- NOTE | 2024-08-25 12:19 | MM ---
Risk Values: Niyah 5 year model risk: 1.2%. NCI Lifetime model risk: 4.7%. Prior Study Comparison: 10/02/2021 Bilateral Screening Mammogram, Unknown. 08/09/2024 Bilateral MG screening mammo w CAD, [facility]. 08/12/2024 Right MG 3D work up w/cad RT, [facility]. Pathology Description: Marker Left Behind. Specimen Radiograph. Calcium Found: Yes Needle Type: Eviva Cores: 7 Skin Nicks: 1 Gauge: 9 The calcifications in question within the right breast were targeted by the undersigned. Procedure was performed by the undersigned. Informed consent was obtained and all of the patients questions were answered. The standard sterile technique was utilized and appropriate local anesthesia was obtained with 1% licocaine. Mammotome probe was advanced and multiple core samples were obtained and sent to pathology for interpretation. Microclip marker was deployed at the site of biopsy. Patient was transferred to mammography suite for post procedure mammogram. Post procedural mammogram demonstrates appropriate deployment of radiopaque clip marker. The patient tolerated the procedure well and left the department in stable condition. Pathology results are pending. Impression: Successful stereotactic core biopsy right breast. Pathology Results: Result: Benign, Fibrocystic change. Pathology and radiology were reviewed. Findings are concordant. RIGHT BREAST, STEREOTACTIC CORE BIOPSY: Benign breast tissue with fibrocystic change, fibroadenomatoid stromal hyperplasia, and focal microcalcification. Overall Assessment: Benign Management: Diagnostic Mammogram of the right breast in 6 months. Electronically signed and approved by: Mart Sidhu M.D. Radiologis
== END ==
LOC: RADMAMWWP 09:45
PROVIDERS: ATTEND Family Medicine
DX: N62 Hypertrophy of breast (principal); R92.8 Other abnormal and inconclusive findings on diagnostic imaging of breast
CPT/HCPCS: 88305; 19081; A4648; J2003